=== PATIENT | male | born 1965 | race American Indian/Alaskan Native ===

== ENCOUNTER 2021-11-13 00:51 | Emergency (ER) | payer MEDICAID ==
[2021-11-13 00:57] VITALS: BP 147/89
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
== END 2021-11-13 01:39 | disposition home or self-care (01) ==
LOC: ED 00:51
DX: S49.92XA Unspecified injury of left shoulder and upper arm, initial encounter (principal); I10 Essential (primary) hypertension; E11.9 Type 2 diabetes mellitus without complications; F20.9 Schizophrenia, unspecified; Y08.89XA Assault by other specified means, initial encounter; Y93.89 Activity, other specified; Y92.89 Other specified places as the place of occurrence of the external cause; Y99.8 Other external cause status
CPT/HCPCS: 99283

== ENCOUNTER 2022-02-13 20:03 | Inpatient (IN) | payer MEDICAID ==
--- NOTE | 2022-02-13 20:37 | Consultation ---
Medications and Allergies Allergies Allergy/AdvReac Type Severity Reaction Status Date / Time No Known Allergies Allergy Unverified 11/13/21 00:57 Home Medications Medication Instructions Recorded Confirmed Last Taken Type Naproxen [Naprosyn] 500 mg PO BID #14 tablet 11/13/21 Unknown Rx Assessment and Plan [facility] Consult Note # Demographics Consult Type: Acute Stroke Level 1 (0-4.5 hrs) Patient Location: Emergency Room First Name: Randy Last Name: Jewel Date of : 1965 Age: 56 Gender: Male Time of Initial Page ([facility]): 02/14/2022, 00:16 Time of Return Call ([facility]): 02/14/2022, 00:16 # HPI History: 56M reports that he had strokes 10 months ago. Same symptoms today he says. Not able to walk or speak well. left side weak also. Last well time was about 19:30. Patient feels he started having trouble Friday, but family noticed worsening today. # Scores Time of exam and NIHSS ([facility]): 02/14/2022, 00:33 Level of Consciousness 1a: [0] = Alert; keenly responsive LOC Questions 1b: [0] = Answers both questions correctly LOC Commands 1c: [0] = Performs both tasks correctly Best Gaze 2: [1] = Partial gaze palsy Visual 3: [0] = No visual loss Facial Palsy 4: [1] = Minor paralysis Motor Arm Left 5a: [1] = Drift Motor Arm Right 5b: [0] = No drift Motor Leg Left 6a: [1] = Drift Motor Leg Right 6b: [0] = No drift Limb Ataxia 7: [0] = Absent Sensory 8: [1] = [id number] sensory loss Best Language 9: [0] = No aphasia Dysarthria 10: [2] = Severe dysarthria Extinction and Inattention 11: [0] = No abnormality NIHSS Total: 7 # Data Time Head CT personally read by me ([facility]): 02/14/2022, 00:[address]: no bleed preliminarily reviewed by me, please refer to radiology read for official reading prior cererbellar strokes. # Assessment Impression: Ischemic Stroke (Acute) # Plan Thrombolytic/Intervention: NOT IV Thrombolysis or IA Intervention candidate Thrombolytic Exclusion (< 3 hour window): time of onset unclear Thrombolytic Exclusion: > 4.5 hours Intraarterial Exclusion: other pending CTA head/neck. Target Blood Pressure: SBP < 220 Imaging: (urgency: STAT): CT Angiogram Head and CT Angiogram Neck Imaging: (urgency: routine): MRI Brain without contrast Diagnostic Test: echo with bubble study Medication: aspirin 81 mg daily start statin with goal of LDL < 70 Other: LDL < 70 telemetry monitoring I have discussed my recommendations with the referring provider Additional Recommendations: consider change to plavix from asa. Disposition: admit # Logistics Telemedicine: Interactive 2 way audio and visual telecommunication technology was utilized during this visit
--- NOTE | 2022-02-13 20:40 | Emergency Department Report ---
HPI - General Time Seen by Provider: 02/13/22 20:37 - HPI HPI: Room 6 The patient is a 56-year-old male present with a chief complaint of left-sided weakness. The patient states 5 days ago he noticed he kept falling. Patient states he developed weakness of his left upper extremity and was dragging his left leg. The patient states he has a history of left-sided weakness from previous CVAs but this weakness is much worse than his baseline. Patient states the following day he noticed he had slurred speech and difficulty swallowing. 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) Hx Diabetes: Yes Hx Psychiatric Treatment: Yes (schizophrenia) Additional medical history: high cholesterol - Surgical History Past Surgical History?: No - Family History Family history: no significant - Social History Smoking Status: Never Smoker Substance Use Type: Marijuana - Medications Home Medications: Home Medications Medication Instructions Recorded Confirmed Last Taken Type Naproxen [Naprosyn] 500 mg PO BID #14 tablet 11/13/21 Unknown Rx ED Review of Systems ROS: Stated complaint: AMS Other details as noted in HPI Constitutional: no symptoms reported Eyes: denies: eye pain ENT: denies: throat pain Respiratory: no symptoms reported Cardiovascular: denies: chest pain Endocrine: no symptoms reported Gastrointestinal: denies: abdominal pain Genitourinary: denies: dysuria Musculoskeletal: denies: back pain Neurological: weakness, paresthesias, abnormal gait Physical Exam - Physical Exam Physical Exam: GENERAL: The patient is well-developed well-nourished male lying on stretcher not appearing to be in acute distress. [] HEENT: Normocephalic. Atraumatic. Extraocular motions are intact. Patient has moist mucous membranes. NECK: Supple. Trachea midline CHEST/LUNGS: Clear to auscultation. There is no respiratory distress noted. HEART/CARDIOVASCULAR: Regular. There is no tachycardia. There is no gallop rub or murmur. ABDOMEN: Abdomen is soft, nontender. Patient has normal bowel sounds. There is no abdominal distention. SKIN: There is no rash. There is no edema. There is no diaphoresis. NEURO: The patient is awake, alert, and oriented. The patient is cooperative. Cranial nerves II through XII grossly intact with exception of cranial nerve XI on the left. The patient has slightly slurred speech. Patient is able to hold right upper extremity at 45 degree angle for 5-second count without drift. Patient is able to hold left upper extremity at 45 degree angle for 5-second count with some drift but it does not fall to the bed. Patient is able to hold right lower extremity at 30 degree angle for 10-second count without drift. Patient can raise left lower extremity off the bed but not up to a full 30 degrees and there is drift for 5-second count but it does not fall to the bed. N IHSS= 7 MUSCULOSKELETAL: There is no evidence of acute injury. ED Course - Consultations Consultation #1: 02/13/22 20:39 Case discussed with telemetry neurologist Dr. Tena-patient reports he believes the symptoms began 5 days ago for the family noticed it approximately 1 hour ago. Subsequently do not believe the patient is a candidate for tPA unless further information becomes available clarifying the time of onset ED Medical Decision Making - Lab Data Result diagrams: 02/13/22 20:48 02/13/22 20:48 - Radiology Data Radiology results: report reviewed (CT head, CTA brain, CTA neck), image reviewed (CT head, CTA brain, CTA neck) [facility] [address] [place] [address] Cat Scan Report Signed Patient: MICHAEL POWELL MR#: [id number] : 1965 Acct:[id number] Age/Sex: 56 / M ADM Date: 02/13/22 Loc: ED Attending Dr: Ordering Physician: CHARISSE FERMIN MD Date of Service: 02/13/22 Procedure(s): CT angio head Accession Number(s): [id number] cc: CHARISSE FERMIN MD CTA head with intravenous contrast CLINICAL HISTORY: Left-sided weakness TECHNIQUE: 0.625 mm thick contiguous axial scans were obtained from the skull base to the skull vertex during rapid bolus administration of intravenous contrast material. Multiplanar reconstructions were produced in the coronal and sagittal planes. In addition 3 plane MIP instructions were produced and reviewed for this report. The axial source images and reconstructed images were reviewed for this report. CONTRAST DOSE REPORT: Omnipaque 350: 100 ml administered intravenously. All CT scans at this location are performed using CT dose reduction for ALARA by means of automated exposure control. FINDINGS: Internal carotid arteries:Flor, cavernous, opthalmic, clinoid and supraclinoid segments of the ICAs have an unremarkable appearance. Middle cerebral arteries:Normal and symmetrical M1 segments of the middle cerebral arteries are demonstrated. No abnormalities are seen on evaluation of the insular or opercular branches. Anterior cerebral arteries:Bilaterally symmetrical A1 segments are demonstrated. No abnormalities are seen along the course of the A2 segments or their visualized pericallosal branches. The small anterior communicating artery is identified. Vertebral arteries:Bilaterally symmetrical vertebral arteries are demonstrated. Both vertebral arteries contribute to the basilar artery origin. Basilar artery:Basilar artery has an unremarkable appearance. Posterior cerebral arteries:Bilaterally symmetrical posterior cerebral arteries are identified. Bilateral posterior communicating arteries are observed. [place]: Intact.. see above. Dural sinuses: Dural venous sinuses are well demonstrated on this exam. There is no evidence of dural sinus thrombosis. IMPRESSION: 1. No indication of intercranial stenosis, large vessel occlusion or aneurysm. Signer Name: Santosh Austin MD Signed: 02/13/2022 10:38 PM Workstation Name: [id number] Transcribed By: Dictated By: Santosh Austin MD Electronically Authenticated By: Santosh Austin MD Signed Date/Time: 02/13/222237 DD/ 32 TD/TT: Cat Scan Report Signed Patient: MICHAEL POWELL MR#: [id number] : 1965 Acct:[id number] Age/Sex: 56 / M ADM Date: 02/13/22 Loc: ED Attendi stephane Dr: Ordering Physician: CHARISSE FERMIN MD Date of Service: 02/13/22 Procedure(s): CT angio neck Accession Number(s): [id number] cc: CHARISSE FERMIN MD CTA neck without and with intravenous contrast material CLINICAL HISTORY: Left- sided weakness TECHNIQUE: Following acquisition of a timing bolus 0.625 mm thick contiguous axial scans were obtained from aortic arch to the skull base during rapid bolus intravenous contrast infusion. In addition to evaluation of axial source images multiplanar reconstructions were produced and reviewed for this report. 3 plane MIP reconstructions were produced and reviewed. Contrast dose report: Omnipaque 350: 100 ml, administered intravenously All CT examinations performed at this facility utilize modulated dose reduction, iterative reconstruction or weight-based dosing, as appropriate, to obtain a radiation dose which is as low as can reasonably be achieved. FINDINGS: Thoracic aorta:No abnormalities are identified along the course of the thoracic aorta..The origins of the great vessels have an unremarkable appearance. Brachiocephalic artery, left common carotid artery origin and left subclavian artery all have an unremarkable appearance. Right carotid artery:No abnormalities are seen along the course of the RCCA, at the right carotid bifurcation or along the cervical portions of the RENATO. Left carotid artery: Soft plaque is seen along the course of the left common carotid artery. There is no associated stenosis. Evaluation of the left carotid bulb is remarkable for a large amount of soft plaque which extends up into the proximal LICA. This results in an 0.7 cm length stenosis at the origin of the LICA. The degree of stenosis is about 70-75% Posterior circulation: Right vertebral artery is hypoplastic. Vertebral artery on the right is only intermittent visualized. This may be secondary to retrograde flow of blood and contrast. The origin of the RVA is poorly demonstrated. The degree of stenosis, if any, is determined utilizing NASCET like criteria. In this case there is no a 70-75% stenosis at the origin of the LICA. Evaluation of the nonv ascular soft tissue structures reveal no abnormality. There is no indication of cervical lymphadenopathy. No abnormalities are seen along the course of the airway. Visualized portions of the parotid glands and the submandibular salivary glands have a normal appearance. Thyroid gland has a normal appearance. Evaluation of the lung apices reveals no evidence of lung nodule or infiltrate. Evaluation of the cervical spine revealed no significant abnormalities. IMPRESSION: 1. Soft plaque at the left carotid bulb is associated with a 70-75% stenosis at the origin of the LICA Signer Name: Santosh Austin MD Signed: 02/13/2022 10:45 PM Workstation Name: [id number] Transcribed By: Dictated By: Santosh Austin MD Electronically Authenticated By: Santosh Austin MD Signed Date/Time: 02/13/222244 DD/ 37 TD/TT: [facility] [address] [place] [address] Cat Scan Report Signed Patient: MICHAEL POWELL MR#: [id number] : 1965 Acct:[id number] Age/Sex: 56 / M ADM Date: 02/13/22 Loc: ED Attending Dr: Jorge abad Physician: CHARISSE FERMIN MD Date of Service: 02/13/22 Procedure(s): CT head/brain wo con Accession Number(s): [id number] cc: CHARISSE FERMIN MD CT HEAD WITHOUT CONTRAST INDICATION / CLINICAL INFORMATION: possible stroke. TECHNIQUE: All CT scans at this location are performed using CT dose reduction for ALARA by means of automated exposure control. COMPARISON: None available. FINDINGS: HEMORRHAGE: No evidence of intracranial hemorrhage or extra-axial fluid collection. EXTRA-AXIAL SPACES: Cortical sulci, sylvian fissures and basilar cisterns have an unremarkable appearance. VENTRICULAR SYSTEM: Ex vacuo dilatation of the frontal horn and anterior body of the right lateral ventricle is noted secondary to remote deep infarction in the adjacent right gangliocapsular region. No additional supratentorial infarctions are identified. CEREBRAL PARENCHYMA: Low-attenuation region in the right gangliocapsular region looks the presence of a remote small deep infarction in this location. Mild microvascular ischemic changes are present in the white matter both cerebral hemispheres. MIDLINE SHIFT OR HERNIATION: There is no mass effect. CEREBELLUM / BRAINSTEM: Brainstem has an unremarkable appearance. There is evidence of remote bilateral cerebellar infarctions in a PICA distribution. MIDLINE STRUCTURES:No abnormalities of the pituitary gland or pineal region are identified. INTRACRANIAL VESSELS: Calcified atherosclerotic plaque is present along the course the cavernous segments of both internal carotid arteries. This extends up through the clinoid segments bilaterally. ORBITS: visualized portions of the orbits have an unremarkable appearance. SOFT TISSUES of HEAD: No significant abnormality. CALVARIUM: Evaluation of bone windows reveals no abnormalities. PARANASAL SINUSES / MASTOID AIR CELLS: Visualized portions of the paranasal sinuses are free from inflammatory mucosal disease. Mastoid air cells are normally pneumatized. IMPRESSION: 1. 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 2. Bilateral cerebellar infarctions which appear to be in the PICA distribution. 3. No acute intracranial abnormality. CODE STROKE: Time of Communication (CULL GRADER/CDT): 2001 hours Central standard time Licensed Practitioner Receiving Report: Dr. Fermin Signer Name: Santosh Austin MD Signed: 02/13/2022 9:07 PM Workstation Name: [id number] Transcribed By: Dictated By: Santosh Austin MD Electronically Authenticated By: Santosh Austin MD Signed Date/Time: 02/13/222106 DD/ 58 TD/TT: - Differential Diagnosis CVA Critical care attestation.: If time is entered above; I have spent that time in minutes in the direct care of this critically ill patient, excluding procedure time. ED Disposition Clinical Impression: CVA (cerebral vascular accident) Disposition: ADMITTED INPATIENT Is pt being admited?: Yes Does the pt Need Aspirin: Yes Condition: Fair Time of Disposition: 22:54 (Care transferred to hospitalist (Dr. Torres))
[2022-02-13] MEDS ORDERED: ASPIRIN 325 MG TAB PO ONE (21:00)
[2022-02-13 21:08] LABS: Basophils % (Auto) 0.5 % (0.0-1.8); Eosinophils # (Auto) 0.1 K/mm3 (0.0-0.4); Eosinophils % (Auto) 1.6 % (0.0-4.3); Hematocrit 41.5 % (35.5-45.6); INR 0.84 (0.87-1.13); Lymphocytes # (Auto) 1.7 K/mm3 (1.2-5.4); Lymphocytes % (Auto) 20.3 % (13.4-35.0); Mean Corpuscular HGB Conc 34 % (32-34); Mean Corpuscular Volume 92 fl (84-94); Monocytes # (Auto) 0.9 K/mm3 (0.0-0.8); Monocytes % (Auto) 10.1 % (0.0-7.3); Platelet Count 304 K/mm3 (140-440); Red Blood Count 4.52 M/mm3 (3.65-5.03); Red Cell Distribution Width 13.7 % (13.2-15.2)
[2022-02-13 21:09] LABS: BUN/Creatinine Ratio 23; Blood Urea Nitrogen 23 mg/dL (9-20); Calcium 9.5 mg/dL (8.4-10.2); Hemolysis Index 5
--- NOTE | 2022-02-13 21:12 | Cat Scan Report ---
CT HEAD WITHOUT CONTRAST INDICATION / CLINICAL INFORMATION: possible stroke. TECHNIQUE: All CT scans at this location are performed using CT dose reduction for ALARA by means of automated e xposure control. COMPARISON: None available. FINDINGS: HEMORRHAGE: No evidence of intracranial hemorrhage or extra-axial fluid collection. EXTRA-AXIAL SPACES: Cortical sulci, sylvian fissures and basilar cisterns have an unremarkable appear ance. VENTRICULAR SYSTEM: Ex vacuo dilatation of the frontal horn and anterior body of the right lateral ve ntricle is noted secondary to remote deep infarction in the adjacent right gangliocapsular region. No additional supratentorial infarctions are identified. CEREBRAL PARENCHYMA: Low-attenuation region in the right gangliocapsular region looks the presence of a remote small deep infarction in this location. Mild microvascular ischemic changes are present in the white matter both cerebral hemispheres. MIDLINE SHIFT OR HERNIATION: There is no mass effect. CEREBELLUM / BRAINSTEM: Brainstem has an unremarkable appearance. There is evidence of remote bilater al cerebellar infarctions in a PICA distribution. MIDLINE STRUCTURES:No abnormalities of the pituitary gland or pineal region are identified. INTRACRANIAL VESSELS: Calcified atherosclerotic plaque is present along the course the cavernous segm ents of both internal carotid arteries. This extends up through the clinoid segments bilaterally. ORBITS: visualized portions of the orbits have an unremarkable appearance. SOFT TISSUES of HEAD: No significant abnormality. CALVARIUM: Evaluation of bone windows reveals no abnormalities. PARANASAL SINUSES / MASTOID AIR CELLS: Visualized portions of the paranasal sinuses are free from inf lammatory mucosal disease. Mastoid air cells are normally pneumatized. IMPRESSION: 1. 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 2. Bilateral cerebellar infarctions which appear to be in the PICA distribution. 3. No acute intracranial abnormality. CODE STROKE: Time of Communication (WASTE MACHINE OFFBEARER/CDT): 2001 hours Central standard time Licensed Practitioner Receiving Report: Dr. Lindquist Signer Name: Santosh Austin MD Signed: 02/13/2022 9:07 PM Workstation Name: [id number]
[2022-02-13 21:14] LABS: Thrombin Time 17.7 Sec. (15.1-19.6)
--- NOTE | 2022-02-13 22:42 | Cat Scan Report ---
CTA head with intravenous contrast CLINICAL HISTORY: Left-sided weakness TECHNIQUE: 0.625 mm thick contiguous axial scans were obtained from the skull base to the skull vertex during r apid bolus administration of intravenous contrast material. Multiplanar reconstructions were produced in the coronal and sagittal planes. In addition 3 plane MIP instructions were produced and reviewed for this report. The axial source images and reconstructed images were reviewed for this report. CONTRAST DOSE REPORT: Omnipaque 350: 100 ml administered intravenously. All CT scans at this location are performed using CT dose reduction for ALARA by means of automated e xposure control. FINDINGS: Internal carotid arteries:Flor, cavernous, opthalmic, clinoid and supraclinoid segments of the ICAs have an unremarkable appearance. Middle cerebral arteries:Normal and symmetrical M1 segments of the middle cerebral arteries are demon strated. No abnormalities are seen on evaluation of the insular or opercular branches. Anterior cerebral arteries:Bilaterally symmetrical A1 segments are demonstrated. No abnormalities are seen along the course of the A2 segments or their visualized pericallosal branches. The small anteri or communicating artery is identified. Vertebral arteries:Bilaterally symmetrical vertebral arteries are demonstrated. Both vertebral arteri es contribute to the basilar artery origin. Basilar artery:Basilar artery has an unremarkable appearance. Posterior cerebral arteries:Bilaterally symmetrical posterior cerebral arteries are identified. Bila teral posterior communicating arteries are observed. [place]: Intact.. see above. Dural sinuses: Dural venous sinuses are well demonstrated on this exam. There is no evidence of dural sinus thrombosis. IMPRESSION: 1. No indication of intercranial stenosis, large vessel occlusion or aneurysm. Signer Name: Santosh Austin MD Signed: 02/13/2022 10:38 PM Workstation Name: [id number]
--- NOTE | 2022-02-13 22:49 | Cat Scan Report ---
CTA neck without and with intravenous contrast material CLINICAL HISTORY: Left-sided weakness TECHNIQUE: Following acquisition of a timing bolus 0.625 mm thick contiguous axial scans were obtained from aort ic arch to the skull base during rapid bolus intravenous contrast infusion. In addition to evaluation of axial source images multiplanar reconstructions were produced and reviewed for this report. 3 jorge ne MIP reconstructions were produced and reviewed. Contrast dose report: Omnipaque 350: 100 ml, administered intravenously All CT examinations performed at this facility utilize modulated dose reduction, iterative reconstruc tion or weight-based dosing, as appropriate, to obtain a radiation dose which is as low as can reason ably be achieved. FINDINGS: Thoracic aorta:No abnormalities are identified along the course of the thoracic aorta..The origins of the great vessels have an unremarkable appearance. Brachiocephalic artery, left common carotid arter y origin and left subclavian artery all have an unremarkable appearance. Right carotid artery:No abnormalities are seen along the course of the RCCA, at the right carotid bif urcation or along the cervical portions of the RENATO. Left carotid artery: Soft plaque is seen along the course of the left common carotid artery. There is no associated stenosis. Evaluation of the left carotid bulb is remarkable for a large amount of soft plaque which extends up into the proximal LICA. This results in an 0.7 cm length stenosis at the siobhan gin of the LICA. The degree of stenosis is about 70-75% Posterior circulation: Right vertebral artery is hypoplastic. Vertebral artery on the right is only i ntermittent visualized. This may be secondary to retrograde flow of blood and contrast. The origin of the RVA is poorly demonstrated. The degree of stenosis, if any, is determined utilizing NASCET like criteria. In this case there is no a 70-75% stenosis at the origin of the LICA. Evaluation of the nonvascular soft tissue structures reveal no abnormality. There is no indication of cervical lymphadenopathy. No abnormalities are seen along the course of the airway. Visualized porti ons of the parotid glands and the submandibular salivary glands have a normal appearance. Thyroid gla nd has a normal appearance. Evaluation of the lung apices reveals no evidence of lung nodule or infil trate. Evaluation of the cervical spine revealed no significant abnormalities. IMPRESSION: 1. Soft plaque at the left carotid bulb is associated with a 70-75% stenosis at the origin of the LIC A Signer Name: Santosh Austin MD Signed: 02/13/2022 10:45 PM Workstation Name: [id number]
[2022-02-13] MEDS ORDERED: MORPHINE 4 MG/1 ML INJ IV PRN (23:10)
[2022-02-13] MEDS ORDERED: MORPHINE 2 MG/1 ML INJ IV PRN (23:10)
[2022-02-13] MEDS ORDERED: ONDANSETRON 4 MG/2 ML INJ IV PRN (23:10)
--- NOTE | 2022-02-13 23:22 | History and Physical Report ---
History of Present Illness Date of examination: 02/13/22 Date of admission: 02/13/22 Chief complaint: Left-sided weakness History of present illness: 56-year-old male with history of CVA, hypertension, diabetes was brought to the emergency room because of left-sided weakness since Friday. The patient states 5 days ago he noticed he kept falling. Patient states he developed weakness of his left upper extremity and was dragging his left leg. The patient states he has a history of left-sided weakness from previous CVAs but this weakness is much worse than his baseline. Patient states the following day he noticed he had slurred speech and difficulty swallowing. Today family saw the patient and had him brought to the emergency department Initial CT scan of the head shows remote deep gangliocapsular infarction on the right with exvacuodilatation of the adjacent right lateral ventricle. Bilateral cerebral infarction which appeared to be in the PICA distribution. No acute intracranial abnormality . neck CTA shows soft plaque at the left carotid bulb i s associated with a 70 to 75% stenosis at the origin of LICA . case discussed with telemetry neurologist Dr. Tena-patient reports he believes the symptoms began 5 days ago for the family noticed it approximately 1 hour ago. Subsequently do not believe the patient is a candidate for tPA unless fu rther information becomes available clarifying the time of onset Past History Past Medical History: diabetes, hypertension, hyperlipidemia (Schizophrenia), stroke, other Past Surgical History: No surgical history Social history: other (Marijuana abuse) Family history: hypertension Medications and Allergies Allergies Allergy/AdvReac Type Severity Reaction Status Date / Time No Known Allergies Allergy Unverified 11/13/21 00:57 Home Medications Medication Instructions Recorded Confirmed Last Taken Type Naproxen [Naprosyn] 500 mg PO BID #14 tablet 11/13/21 Unknown Rx Active Meds: Active Medications Acetaminophen (Acetaminophen 325 Mg Tab) 650 mg PO Q4H PRN PRN Reason: Pain MILD(1-3)/Fever >100.5/BECERRA Aspirin (Aspirin 325 Mg Tab) 325 mg PO QDAY [facility] Atorvastatin Calcium (Atorvastatin 40 Mg Tab) 40 mg PO QHS [facility] Famotidine (Famotidine 20 Mg/2 Ml Inj) 20 mg IV BID [facility] Sodium Chloride (Nacl 0.9% 1000 Ml) 1,000 mls @ 100 mls/hr IV DIRECT [facility] Morphine Sulfate (Morphine 2 Mg/1 Ml Inj) 2 mg IV Q4H PRN PRN Reason: Pain, Moderate (4-6) Morphine Sulfate (Morphine 4 Mg/1 Ml Inj) 4 mg IV Q4H PRN PRN Reason: Pain , Severe (7-10) Ondansetron HCl (Ondansetron 4 Mg/2 Ml Inj) 4 mg IV Q8H PRN PRN Reason: Nausea And Vomiting Sodium Chloride (Sodium Chloride 0.9% 10 Ml Flush Syringe) 10 ml IV BID [facility] Sodium Chloride (Sodium Chloride 0.9% 10 Ml Flush Syringe) 10 ml IV PRN PRN PRN Reason: LINE FLUSH Sodium Chloride (Sodium Chloride 0.9% 10 Ml Flush Syringe) 10 ml INJ PRN PRN PRN Reason: LINE FLUSH Review of Systems All systems: negative Constitutional: weakness Neurological: weakness, numbness, change in speech, other (Difficulty in swallow) Exam - Constitutional General appearance: Present: no acute distress, well-nourished - EENT Eyes: Present: PERRL ENT: hearing intact, clear oral mucosa - Neck Neck: Present: supple, normal ROM - Respiratory Respiratory effort: normal Respiratory: bilateral: CTA - Cardiovascular Heart Sounds: Present: S1 & S2. Absent: rub, click - Extremities Extremities: pulses symmetrical, No edema Peripheral Pulses: within normal limits - Abdominal General gastrointestinal: Present: soft, non-tender, non-distended, normal bowel sounds Male genitourinary: Present: normal - Integumentary Integumentary: Present: clear, warm, dry - Musculoskeletal Musculoskeletal: gait normal, strength equal bilaterally - Psychiatric Psychiatric: appropriate mood/affect, intact judgment & insight - Neurologic Neurologic: CNII-XII intact, moves all extremities, other (Left-sided weakness) Results - Labs CBC & Chem 7: 02/13/22 20:48 02/13/22 20:48 Labs: Laboratory Last Values WBC 8.6 K/mm3 (4.5-11.0) 02/13/22 20:48 RBC 4.52 M/mm3 (3.65-5.03) 02/13/22 20:48 Hgb 14.0 gm/dl (11.8-15.2) 02/13/22 20:48 Hct 41.5 % (35.5-45.6) 02/13/22 20:48 MCV 92 fl (84-94) 02/13/22 20:48 MCH 31 pg (28-32) 02/13/22 20:48 MCHC 34 % (32-34) 02/13/22 20:48 RDW 13.7 % (13.2-15.2) 02/13/22 20:48 Plt Count 304 K/mm3 (140-440) 02/13/22 20:48 Lymph % (Auto) 20.3 % (13.4-35.0) 02/13/22 20:48 [place] % (Auto) 10.1 % (0.0-7.3) H 02/13/22 20:48 Eos % (Auto) 1.6 % (0.0-4.3) 02/13/22 20:48 Baso % (Auto) 0.5 % (0.0-1.8) 02/13/22 20:48 Lymph # (Auto) 1.7 K/mm3 (1.2-5.4) 02/13/22 20:48 [place] # (Auto) 0.9 K/mm3 (0.0-0.8) H 02/13/22 20:48 Eos # (Auto) 0.1 K/mm3 (0.0-0.4) 02/13/22 20:48 Baso # (Auto) 0.0 K/mm3 (0.0-0.1) 02/13/22 20:48 Seg Neutrophils % 67.5 % (40.0-70.0) 02/13/22 20:48 Seg Neutrophils # 5.8 K/mm3 (1.8-7.7) 02/13/22 20:48 PT 12.4 Sec. (12.2-14.9) 02/13/22 20:48 INR 0.84 (0.87-1.13) L 02/13/22 20:48 APTT 25.0 Sec. (24.2-36.6) 02/13/22 20:48 Thrombin Time 17.7 Sec. (15.1-19.6) 02/13/22 20:48 Sodium 136 mmol/L (137-145) L 02/13/22 20:48 Potassium 4.2 mmol/L (3.6-5.0) 02/13/22 20:48 Chloride 101.2 mmol/L (98-107) 02/13/22 20:48 Carbon Dioxide 24 mmol/L (22-30) 02/13/22 20:48 Anion Gap 15 mmol/L 02/13/22 20:48 BUN 23 mg/dL (9-20) H 02/13/22 20:48 Creatinine 1.0 mg/dL (0.8-1.3) 02/13/22 20:48 Estimated GFR > 60 ml/min 02/13/22 20:48 BUN/Creatinine Ratio 23 % 02/13/22 20:48 Glucose 114 mg/dL (75-100) H 02/13/22 20:48 Calcium 9.5 mg/dL (8.4-10.2) 02/13/22 20:48 - Imaging and Cardiology CT Scan - head: report reviewed Assessment and Plan VTE prophylaxis?: Chemical Plan of care discussed with patient/family: Yes - Patient Problems (1) CVA (cerebral vascular accident) Current Visit: Yes Status: Acute Plan to address problem: Admit the patient to the medical telemetry. NPO. Normal saline at the rate of 100 cc/h. Aspirin 325 mg p.o. daily. Lipitor 40 mg p.o. daily. We do the MRI of the brain MRI of the brain and neck with and without contrast. PT OT speech evaluation neurology consult and vascular surgery consult (2) Diabetes Current Visit: Yes Status: Acute Plan to address problem: Accu-Chek every 6 hours with Humalog moderate dose coverage as. Diabetic education (3) High cholesterol Current Visit: Yes Status: Acute Plan to address problem: Lipitor 40 mg p.o. daily. We will recheck the lipid panel (4) Schizophrenia Current Visit: Yes Status: Acute Plan to address problem: Stable. We will continue the home medication (5) DVT prophylaxis Current Visit: Yes Status: Acute Plan to address problem: Heparin 5000 units subcu every 12 hours for DVT prophylaxis. Pepcid 20 mg IV every 12 hours for GI prophylaxis. Patient is a full code
[2022-02-13] MEDS ORDERED: DEXTROSE 50% IN WATER (25GM) 50 ML SYRINGE IV PRN (23:24)
[2022-02-14] MEDS: SODIUM CHLORIDE 0.9% 1000 ML 1,000 ML IV SCH ×2 (03:32→14:59)
[2022-02-14] MEDS: INSULIN LISPRO 100 UNIT/ML SUB-Q SCH ×4 (03:46→21:30)
[2022-02-14 04:27] LABS: Basophils % (Auto) 0.5 % (0.0-1.8); Eosinophils # (Auto) 0.2 K/mm3 (0.0-0.4); Eosinophils % (Auto) 2.3 % (0.0-4.3); Hematocrit 40.4 % (35.5-45.6); Hemoglobin 13.7 gm/dl (11.8-15.2); Lymphocytes # (Auto) 2.1 K/mm3 (1.2-5.4); Lymphocytes % (Auto) 26.2 % (13.4-35.0); Mean Corpuscular HGB Conc 34 % (32-34); Mean Corpuscular Volume 92 fl (84-94); Monocytes # (Auto) 0.9 K/mm3 (0.0-0.8); Monocytes % (Auto) 11.3 % (0.0-7.3); Platelet Count 281 K/mm3 (140-440); Red Blood Count 4.39 M/mm3 (3.65-5.03); Red Cell Distribution Width 13.5 % (13.2-15.2)
[2022-02-14 04:52] LABS: BUN/Creatinine Ratio 21; Blood Urea Nitrogen 19 mg/dL (9-20); Calcium 9.5 mg/dL (8.4-10.2); Chol/HDL Ratio 3.75 %; HDL Cholesterol 48 mg/dL (40-59); Hemolysis Index 2; LDL Cholesterol,Direct 120 mg/dL (50-130)
--- NOTE | 2022-02-14 09:57 | Progress Note ---
Assessment and Plan Assessment and plan: VTE prophylaxis?: Chemical Plan of care discussed with patient/family: Yes - Patient Problems --CVA (cerebral vascular accident) Admit the patient to the medical telemetry. NPO. Normal saline at the rate of 100 cc/h. Aspirin 325 mg p.o. daily. Lipitor 40 mg p.o. daily. We do the MRI of the brain MRI of the brain and neck with and without contrast. PT OT speech evaluation neurology consult and vascular surgery consult PT OT evaluation, rehabilitation, discharge planning --Carotid artery stenosis; Vascular consulted Follow evaluation and recommendations Antiplatelets and statins --Type II diabetes Accu-Chek every 6 hours with Humalog moderate dose coverage as. Diabetic educat ion --Dyslipidemia Lipitor 40 mg p.o. daily. We will recheck the lipid panel --History of schizophrenia Stable. We will continue the home medication -- DVT prophylaxis Heparin 5000 units subcu every 12 hours for DVT prophylaxis. Pepcid 20 mg IV every 12 hours for GI prophylaxis. Patient is a full code Follow extensive neuro work-up Follow neurology and vascular evaluation recommendations Closely monitor the patient and adjust the management as needed Plan of care reviewed with the patient and her nurse History Interval history: I have seen and examined the patient at the bedside Patient's chart and medications reviewed Patient was admitted with altered level of consciousness and strokelike symptoms CVA work-up is in progress Vital signs reviewed Hospitalist Physical - Constitutional Vitals: Temp Pulse Resp BP Pulse Ox 97.6 F 76 16 133/78 96 02/14/22 08:25 02/14/22 08:25 02/14/22 03:26 02/14/22 08:25 02/14/22 08:59 General appearance: Present: no acute distress, well-nourished - EENT Eyes: Present: PERRL, EOM intact - Neck Neck: Present: supple, normal ROM - Respiratory Respiratory effort: normal Respiratory: bilateral: diminished, negative: rales, rhonchi, wheezing - Cardiovascular Rhythm: regular Heart Sounds: Present: S1 & S2 - Extremities Extremities: no ischemia, No edema - Abdominal General gastrointestinal: soft, non-tender, non-distended, normal bowel sounds - Integumentary Integumentary: Present: clear, warm - Psychiatric Psychiatric: appropriate mood/affect, cooperative - Neurologic Neurologic: moves all extremities (Residual weakness) Results - Labs CBC & Chem 7: 02/14/22 04:07 02/14/22 04:07 Labs: Laboratory Last Values WBC 8.0 K/mm3 (4.5-11.0) 02/14/22 04:07 RBC 4.39 M/mm3 (3.65-5.03) 02/14/22 04:07 Hgb 13.7 gm/dl (11.8-15.2) 02/14/22 04:07 Hct 40.4 % (35.5-45.6) 02/14/22 04:07 MCV 92 fl (84-94) 02/14/22 04:07 MCH 31 pg (28-32) 02/14/22 04:07 MCHC 34 % (32-34) 02/14/22 04:07 RDW 13.5 % (13.2-15.2) 02/14/22 04:07 Plt Count 281 K/mm3 (140-440) 02/14/22 04:07 Lymph % (Auto) 26.2 % (13.4-35.0) 02/14/22 04:07 [place] % (Auto) 11.3 % (0.0-7.3) H 02/14/22 04:07 Eos % (Auto) 2.3 % (0.0-4.3) 02/14/22 04:07 Baso % (Auto) 0.5 % (0.0-1.8) 02/14/22 04:07 Lymph # (Auto) 2.1 K/mm3 (1.2-5.4) 02/14/22 04:07 [place] # (Auto) 0.9 K/mm3 (0.0-0.8) H 02/14/22 04:07 Eos # (Auto) 0.2 K/mm3 (0.0-0.4) 02/14/22 04:07 Baso # (Auto) 0.0 K/mm3 (0.0-0.1) 02/14/22 04:07 Seg Neutrophils % 59.7 % (40.0-70.0) 02/14/22 04:07 Seg Neutrophils # 4.8 K/mm3 (1.8-7.7) 02/14/22 04:07 PT 12.4 Sec. (12.2-14.9) 02/13/22 20:48 INR 0.84 (0.87-1.13) L 02/13/22 20:48 APTT 25.0 Sec. (24.2-36.6) 02/13/22 20:48 Thrombin Time 17.7 Sec. (15.1-19.6) 02/13/22 20:48 Sodium 138 mmol/L (137-145) 02/14/22 04:07 Potassium 3.8 mmol/L (3.6-5.0) 02/14/22 04:07 Chloride 102.9 mmol/L (98-107) 02/14/22 04:07 Carbon Dioxide 22 mmol/L (22-30) 02/14/22 04:07 Anion Gap 17 mmol/L 02/14/22 04:07 BUN 19 mg/dL (9-20) 02/14/22 04:07 Creatinine 0.9 mg/dL (0.8-1.3) 02/14/22 04:07 Estimated GFR > 60 ml/min 02/14/22 04:07 BUN/Creatinine Ratio 21 % 02/14/22 04:07 Glucose 87 mg/dL (75-100) 02/14/22 04:07 Calcium 9.5 mg/dL (8.4-10.2) 02/14/22 04:07 Triglycerides 81 mg/dL (2-149) 02/14/22 04:07 Cholesterol 180 mg/dL (50-199) 02/14/22 04:07 LDL Cholesterol Direct 120 mg/dL (50-130) 02/14/22 04:07 HDL Cholesterol 48 mg/dL (40-59) 02/14/22 04:07 Cholesterol/HDL Ratio 3.75 % 02/14/22 04:07 Fraser/IV: Voiding Method Urinal Active Medications - Current Medications Current Medications: Generic Name Dose Route Start Last Admin Trade Name Freq PRN Reason Stop Dose Admin Acetaminophen 650 mg 02/13/22 23:10 Acetaminophen 325 Mg Tab PO Q4H PRN Pain MILD(1-3)/Fever >100.5/[facility]ERRA Aspirin 325 mg 02/14/22 10:00 Aspirin 325 Mg Tab PO QDAY [facility] Atorvastatin Calcium 40 mg 02/14/22 22:00 Atorvastatin 40 Mg Tab PO QHS [facility] Dextrose 0 ml 02/13/22 23:24 Dextrose 50% In Water (25gm) 50 Ml Syringe IV Q30MIN PRN Hypoglycemia Protocol Famotidine 20 mg 02/14/22 10:00 Famotidine 20 Mg/2 Ml Inj IV BID [facility] Sodium Chloride 1,000 mls @ 100 mls/hr 02/13/22 23:15 02/14/22 03:32 Nacl 0.9% 1000 Ml IV 100 mls/hr DIRECT [facility] Administration Insulin Human Lispro 0 unit 02/14/22 00:00 02/14/22 06:38 Insulin Lispro 100 Unit/Ml SUB-Q Not Given Q6HR [facility] Protocol Morphine Sulfate 2 mg 02/13/22 23:10 Morphine 2 Mg/1 Ml Inj IV Q4H PRN Pain, Moderate (4-6) Morphine Sulfate 4 mg 02/13/22 23:10 Morphine 4 Mg/1 Ml Inj IV Q4H PRN Pain , Severe (7-10) Ondansetron HCl 4 mg 02/13/22 23:10 Ondansetron 4 Mg/2 Ml Inj IV Q8H PRN Nausea And Vomiting Sodium Chloride 10 ml 02/14/22 10:00 Sodium Chloride 0.9% 10 Ml Flush Syringe IV BID [facility] Sodium Chloride 10 ml 02/13/22 23:10 Sodium Chloride 0.9% 10 Ml Flush Syringe IV PRN PRN LINE FLUSH
[2022-02-14] MEDS: ASPIRIN 325 MG TAB PO SCH (10:01)
[2022-02-14] MEDS: FAMOTIDINE 20 MG/2 ML INJ IV SCH ×2 (10:01→21:31)
--- NOTE | 2022-02-14 10:22 | Electrocardiograph Report ---
[facility] Test Date: 2022-02-13 Test Time: 21:39:52 Pat Name: MICHAEL POWELL Department: Room: A470 1 Gender: M Cover Marker: REGLA : 1965 Requested By: CHARISSE FERMIN Order Number: [id number] Reading MD: Zac Woodson Measurements Intervals [place] Rate: 74 P: 54 [place]: 184 QRS: -57 QRSD: 87 T: -12 QT: 381 QTc: 423 Interpretive Statements Sinus rhythm Probable left atrial enlargement Left ventricular hypertrophy Inferior infarct, age indeterminate Anterior infarct, old Borderline ST elevation, lateral leads No previous ECG available for comparison Electronically Signed On 02-14-2022 10:22:01 EDT by Zac Woodson
--- NOTE | 2022-02-14 13:29 | Consultation ---
History of Present Illness - Reason for Consult Consult date: 02/14/22 Left-sided weakness - History of Present Illness Patient with a history of prior cerebellar infarcts with prior left-sided weakness which the patient describes as improving which worsened over the last 4 to 5 days ultimately resulting in his presentation to [facility]. 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 Additionally, there is narrowing of the proximal aspect of the left ICA. Past History Past Medical History: diabetes, hypertension, hyperlipidemia (Schizophrenia), stroke, other Past Surgical History: No surgical history Social history: other (Marijuana abuse) Family history: hypertension Medications and Allergies Allergies Allergy/AdvReac Type Severity Reaction Status Date / Time No Known Allergies Allergy Unverified 11/13/21 00:57 Home Medications Medication Instructions Recorded Confirmed Last Taken Type Naproxen [Naprosyn] 500 mg PO BID #14 tablet 11/13/21 Unknown Rx Active Meds: Active Medications Acetaminophen (Acetaminophen 325 Mg Tab) 650 mg PO Q4H PRN PRN Reason: Pain MILD(1-3)/Fever >100.5/[facility]ERRA Aspirin (Aspirin 325 Mg Tab) 325 mg PO QDAY [facility] Last Admin: 02/14/22 10:01 Dose: 325 mg Atorvastatin Calcium (Atorvastatin 40 Mg Tab) 40 mg PO QHS [facility] Dextrose (Dextrose 50% In Water (25gm) 50 Ml Syringe) 0 ml IV Q30MIN PRN; Protocol PRN Reason: Hypoglycemia Famotidine (Famotidine 20 Mg/2 Ml Inj) 20 mg IV BID [facility] Last Admin: 02/14/22 10:01 Dose: 20 mg Sodium Chloride (Nacl 0.9% 1000 Ml) 1,000 mls @ 100 mls/hr IV DIRECT [facility] Last Admin: 02/14/22 03:32 Dose: 100 mls/hr Insulin Human Lispro (Insulin Lispro 100 Unit/Ml) 0 unit SUB-Q Q6HR [facility]; Protocol Last Admin: 02/14/22 06:38 Dose: Not Given Morphine Sulfate (Morphine 2 Mg/1 Ml Inj) 2 mg IV Q4H PRN PRN Reason: Pain, Moderate (4-6) Morphine Sulfate (Morphine 4 Mg/1 Ml Inj) 4 mg IV Q4H PRN PRN Reason: Pain , Severe (7-10) Ondansetron HCl (Ondansetron 4 Mg/2 Ml Inj) 4 mg IV Q8H PRN PRN Reason: Nausea And Vomiting Sodium Chloride (Sodium Chloride 0.9% 10 Ml Flush Syringe) 10 ml IV BID [facility] Last Admin: 02/14/22 10:08 Dose: 10 ml Sodium Chloride (Sodium Chloride 0.9% 10 Ml Flush Syringe) 10 ml IV PRN PRN PRN Reason: LINE FLUSH Review of Systems All systems: negative Exam - Constitutional Vitals: Temp Pulse Resp BP Pulse Ox 97.6 F 76 16 133/78 96 02/14/22 08:25 02/14/22 08:25 02/14/22 03:26 02/14/22 08:25 02/14/22 08:59 General appearance: Present: no acute distress - EENT ENT: hearing intact - Neck Neck: Present: supple, normal ROM - Respiratory Respiratory effort: normal - Abdominal General gastrointestinal: Present: deferred - Psychiatric Psychiatric: cooperative Results - Labs CBC & Chem 7: 02/14/22 04:07 02/14/22 04:07 Labs: Abnormal lab results 02/13/22 02/13/22 02/13/22 Range/Units 20:48 20:48 20:48 [place] % (Auto) 10.1 H (0.0-7.3) % [place] # (Auto) 0.9 H (0.0-0.8) K/mm3 INR 0.84 L (0.87-1.13) Sodium 136 L (137-145) mmol/L BUN 23 H (9-20) mg/dL Glucose 114 H (75-100) mg/dL 02/14/22 Range/Units 04:07 [place] % (Auto) 11.3 H (0.0-7.3) % [place] # (Auto) 0.9 H (0.0-0.8) K/mm3 INR (0.87-1.13) Sodium (137-145) mmol/L BUN (9-20) mg/dL Glucose (75-100) mg/dL - Imaging and Cardiology CT Scan - head: image reviewed Assessment and Plan Patient with a recurrent left-sided weakness. On CTA, the patient is noted to have approximately 70% plus percentage stenosis of the proximal left ICA. Is not contributing to the patient's current clinical condition however would warrant follow-up and potential evaluation in the outpatient setting. 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 Would recommend medical optimization. No vascular interventions planned.
--- NOTE | 2022-02-14 13:43 | Magnetic Resonance Report ---
NONENHANCED MR SCAN OF THE BRAIN: INDICATION / CLINICAL INFORMATION: stroke. TECHNIQUE: Multiplanar, multisequence MR images of the brain obtained. COMPARISON: CT scan of the head from 02/13/2022 FINDINGS: BRAIN / INTRACRANIAL CONTENTS: Acute/subacute ischemia seen in the right mid the last, more than 12 levels old (increased T2) less t rojas 5 days old (low ADC). In addition, focal subacute infarction in the midportion of the medulla. Chronic ischemic changes in the cerebellar hemispheres bilaterally along the PICA territory. Volume l oss is seen in the cerebellar hemispheres. Chronic changes are seen in the right side of shazia from small vessel disease. Midbrain is normal. In the cerebral hemispheres, encephalomalacia is seen in the right corpus striatum with compensatory enlargement of right frontal horn from an old hemorrhagic lesion.. Chronic lacunae are seen in the ri ght basal ganglia. High convexity cortical sulci are normal. CRANIOCERVICAL JUNCTION: No significant abnormality. VASCULAR FLOW-VOIDS: No significant abnormality. ORBITS: No significant abnormality of visualized orbits. SINUSES / MASTOIDS: No significant abnormality of visualized sinuses and mastoid air cells. ADDITIONAL FINDINGS: None. IMPRESSION: Subacute right medial medullary ischemia Chronic ischemic changes in the PICA territories bilaterally, right side of shazia Chronic changes in the right basal ganglia from an old hemorrhagic lesion MRA HEAD WITHOUT CONTRAST COMPARISON: CTA of the head from 02/13/2022 TECHNIQUE: Routine MRA of the head is performed. 3-D/MIP reformats postprocessed. CONTRAST: None. FINDINGS: Intracranial vertebral arteries: Right vertebral artery is occluded; left vertebral artery continues as basilar artery Basilar artery: Significant stenoses (more than 80% in the proximal basilar artery Posterior cerebral arteries: No significant abnormality. Right posterior communicating artery continu es as right posterior cerebral artery; left posterior communicating artery contributes to left circus artist ior cerebral artery Intracranial internal carotid arteries: No significant abnormality. Anterior cerebral arteries: No significant abnormality. Middle cerebral arteries: No significant abnormality. Variants and anomalies:None Additional findings: None. 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
--- NOTE | 2022-02-14 15:04 | Magnetic Resonance Report ---
MR brain wo con INDICATION / CLINICAL INFORMATION: 56 years Male; stroke. TECHNIQUE: Multiplanar, multisequence MR images of the brain were obtained. COMPARISON: CT head - 02/13/2022 FINDINGS: BRAIN / INTRACRANIAL CONTENTS: Small focus of acute/early subacute ischemia seen in the right anterol ateral medulla, which certainly could affect the right cortical spinal tract. Old lacunar infarcts are seen in the right gangliocapsular region, as well as the right thalamus. The re is suggestion of prior hemorrhagic component in an old, anterior corpus striatal infarct on the ri ght. Old, bilateral, prominent branch PICA infarcts are noted-left greater than right. Otherwise, no acute hemorrhage, mass effect, midline shift, hydrocephalus, or acute, large territoria l infarct. No chronic infarct or atrophy. Minimal, nonspecific white matter disease identified. Mild to moderate pontine disease noted. CRANIOCERVICAL JUNCTION: No significant abnormality. VASCULAR FLOW-VOIDS: Hyperintense T2 signal seen in the right vertebral artery, suggesting slow or ab sent flow. ORBITS: No significant abnormality of visualized orbits. SINUSES / MASTOIDS: No significant abnormality in the visualized paranasal sinuses or mastoid air mamie ls. ADDITIONAL FINDINGS: None. IMPRESSION: 1. Small focus of acute/early subacute ischemia seen on the right anterolateral medulla. 2. Otherwise, no focal mass, hemorrhage, hydrocephalus, or acute ischemia. 3. Slow or absent flow suggested in the right vertebral artery. Signer Name: Gerald Carl MD, III Signed: 02/14/2022 2:59 PM Workstation Name: [id number]
--- NOTE | 2022-02-14 16:10 | Consultation ---
History of Present Illness Consult date: 02/14/22 Reason for Consult: CVA History of present illness: 6-year-old male with history of CVA, hypertension, diabetes was brought to the emergency room because of left-sided weakness since Friday. The patient states 5 days ago he noticed he kept falling. Patient states he developed weakness of his left upper extremity and was dragging his left leg. The patient states he has a history of left-sided weakness from previous CVAs but this weakness is much worse than his baseline. Patient states the following day he noticed he had slurred speech and difficulty swallowing. Today family saw the patient and had him brought to the emergency department Initial CT scan of the head shows remote deep gangliocapsular infarction on the right with exvacuodilatation of the adjacent right lateral ventricle. Bilateral cerebral infarction which appeared to be in the PICA distribution. No acute intracranial abnormality . neck CTA shows soft plaque at the left carotid bulb is associated with a 70 to 75% stenosis at the origin of LICA . case discussed with telemetry neurologist Dr. Tena-patient reports he believes the symptoms began 5 days ago for the family noticed it approximately 1 hour ago. Subsequently do not believe the patient is a candidate for tPA unless further information becomes available clarifying the time of onset Noted above information . No major improvement in the left sided weakness since being in the hospital. Past History Past Medical History: diabetes, hypertension, hyperlipidemia (Schizophrenia), stroke, other Past Surgical History: No surgical history Social history: other (Marijuana abuse) Family history: hypertension Medications and Allergies Allergies Allergy/AdvReac Type Severity Reaction Status Date / Time No Known Allergies Allergy Unverified 11/13/21 00:57 Home Medications Medication Instructions Recorded Confirmed Last Taken Type Naproxen [Naprosyn] 500 mg PO BID #14 tablet 11/13/21 Unknown Rx Active Meds: Active Medications Acetaminophen (Acetaminophen 325 Mg Tab) 650 mg PO Q4H PRN PRN Reason: Pain MILD(1-3)/Fever >100.5/[facility]RA Aspirin (Aspirin 325 Mg Tab) 325 mg PO QDAY [facility] Last Admin: 02/14/22 10:01 Dose: 325 mg Atorvastatin Calcium (Atorvastatin 40 Mg Tab) 40 mg PO QHS [facility] Dextrose (Dextrose 50% In Water (25gm) 50 Ml Syringe) 0 ml IV Q30MIN PRN; Protocol PRN Reason: Hypoglycemia Famotidine (Famotidine 20 Mg/2 Ml Inj) 20 mg IV BID [facility] Last Admin: 02/14/22 10:01 Dose: 20 mg Sodium Chloride (Nacl 0.9% 1000 Ml) 1,000 mls @ 100 mls/hr IV DIRECT [facility] Last Admin: 02/14/22 14:59 Dose: 100 mls/hr Insulin Human Lispro (Insulin Lispro 100 Unit/Ml) 0 unit SUB-Q Q6HR [facility]; Protocol Last Admin: 02/14/22 06:38 Dose: Not Given Morphine Sulfate (Morphine 2 Mg/1 Ml Inj) 2 mg IV Q4H PRN PRN Reason: Pain, Moderate (4-6) Morphine Sulfate (Morphine 4 Mg/1 Ml Inj) 4 mg IV Q4H PRN PRN Reason: Pain , Severe (7-10) Ondansetron HCl (Ondansetron 4 Mg/2 Ml Inj) 4 mg IV Q8H PRN PRN Reason: Nausea And Vomiting Sodium Chloride (Sodium Chloride 0.9% 10 Ml Flush Syringe) 10 ml IV BID [facility] Last Admin: 02/14/22 10:08 Dose: 10 ml Sodium Chloride (Sodium Chloride 0.9% 10 Ml Flush Syringe) 10 ml IV PRN PRN PRN Reason: LINE FLUSH Physical Examination - Vital Signs Vital Signs: Vital Signs Pulse Resp BP Pulse Ox 75 16 141/87 99 02/14/22 00:33 02/14/22 00:33 02/14/22 00:33 02/14/22 00:33 - Physical Exam Narrative exam: The patient is alert , moves right upper and lower extremity, left side weakness , UE 3/5 , LE 3+/5. Gait is not tested . Results - Laboratory Findings CBC and BMP: 02/14/22 04:07 02/14/22 04:07 Abnormal Lab Findings: Abnormal Labs 02/13/22 02/13/22 02/13/22 20:48 20:48 20:48 Cavalier % (Auto) 10.1 H Cav[place]ier # (Auto) 0.9 H INR 0.84 L Sodium 136 L BUN 23 H Glucose 114 H 02/14/22 04:07 Cavalier % (Auto) 11.3 H [place]ier # (Auto) 0.9 H INR Sodium BUN Glucose Assessment and Plan 1. Ischemic CVA affecting the Right Side , ?Asymptomatic Left ICA stenosis . 2. Reviewed Consult Notes . 3. Reviewed MRI Brain and CTA Brain and Neck . 4. Continue on ASA 325 mg once a day . 5. Needs a consult with Vascular Surgery for discussion with patient about Left Carotid Stenosis ( also follow up ) . 6. Needs PT / OT 7. Call Back with Questions . Dr. Molina
[2022-02-15] MEDS: INSULIN LISPRO 100 UNIT/ML SUB-Q SCH ×5 (00:58→22:03)
[2022-02-15] MEDS: FAMOTIDINE 20 MG/2 ML INJ IV SCH ×2 (09:31→21:51)
[2022-02-15] MEDS: ASPIRIN 325 MG TAB PO SCH (09:31)
--- NOTE | 2022-02-15 20:16 | Progress Note ---
Assessment and Plan Assessment and plan: -CVA (cerebral vascular accident) Admit the patient to the medical telemetry. NPO. Normal saline at the rate of 100 cc/h. Aspirin 325 mg p.o. daily. Lipitor 40 mg p.o. daily. We do the MRI of the brain MRI of the brain and neck with and without contrast. PT OT speech evaluation neurology consult and vascular surgery consult PT OT evaluation, rehabilitation, discharge planning --Carotid artery stenosis; proximal basilar/right vertebral artery stenosis Antiplatelets and statins Vascular evaluation noted and appreciated Recommend medical management outpatient follow-up --Type II diabetes Accu-Chek every 6 hours with Humalog moderate dose coverage as. Diabetic education --Dyslipidemia Lipitor 40 mg p.o. daily. We will recheck the lipid panel --History of schizophrenia Stable. We will continue the home medication -- DVT prophylaxis Heparin 5000 units subcu every 12 hours for DVT prophylaxis. Pepcid 20 mg IV every 12 hours for GI prophylaxis. Patient is a full code Follow extensive neuro work-up Follow neurology and vascular evaluation recommendations Closely monitor the patient and adjust the management as needed Plan of care reviewed with the patient and his nurse. 02/16/2020 ;PT recommended acute rehab placement 02/16/2022; continue current management, follow with CM for discharge planning Awaiting subacute rehab/acute rehab placement Neuro work-up; CT head without contrast remote ganglia capsular infarction on the right with ex vacuo dilatation of the adjacent right lateral ventricle Bilateral cerebral infarctions which appear to be in the PICA distribution no acute intracranial abnormality noted CTA neck; soft plaque at the left carotid bulb associated with 70 to 75% stenosis at the origin of LICA CTA head; no indication of intracranial stenosis, large vessel occlusion or aneurysm MRI brain; small focus of acute/early subacute ischemia seen on the right anterolateral medulla No focal mass hemorrhage hydrocephalus or acute ischemia Slow or absent flow suggested in the right vertebral artery subacute right medial medullary ischemia MRA of the head; internal carotid arteries anterior cerebral arteries and middle cerebral arteries are normal Critical stenosis of proximal basilar artery Occluded right vertebral artery Critical stenosis of the proximal basilar History Interval history: I have seen and examined the patient at the bedside Patient's chart and medications reviewed Patient still has dysarthria and residual weakness PT recommended subacute rehab No new complaints Vital signs reviewed Hospitalist Physical - Constitutional Vitals: Temp Pulse Resp BP Pulse Ox 98.5 F 77 20 149/88 99 06/17/22 06:52 02/15/22 06:52 02/15/22 06:52 02/15/22 06:52 02/15/22 09:32 General appearance: Present: no acute distress, well-nourished, other (Slurred speech) - EENT Eyes: Present: PERRL, EOM intact - Neck Neck: Present: supple, normal ROM - Respiratory Respiratory effort: normal Respiratory: bilateral: diminished, negative: rales, rhonchi, wheezing - Cardiovascular Rhythm: regular Heart Sounds: Present: S1 & S2 - Extremities Extremities: no ischemia, No edema - Abdominal General gastrointestinal: soft, non-tender, non-distended, normal bowel sounds - Integumentary Integumentary: Present: clear, warm - Psychiatric Psychiatric: appropriate mood/affect, cooperative - Neurologic Neurologic: moves all extremities (Acute CVA with residual weakness and slurred speech) Results - Labs CBC & Chem 7: 02/14/22 04:07 02/14/22 04:07 Labs: Laboratory Last Values WBC 8.0 K/mm3 (4.5-11.0) 02/14/22 04:07 RBC 4.39 M/mm3 (3.65-5.03) 02/14/22 04:07 Hgb 13.7 gm/dl (11.8-15.2) 02/14/22 04:07 Hct 40.4 % (35.5-45.6) 02/14/22 04:07 MCV 92 fl (84-94) 02/14/22 04:07 MCH 31 pg (28-32) 02/14/22 04:07 MCHC 34 % (32-34) 02/14/22 04:07 RDW 13.5 % (13.2-15.2) 02/14/22 04:07 Plt Count 281 K/mm3 (140-440) 02/14/22 04:07 Lymph % (Auto) 26.2 % (13.4-35.0) 02/14/22 04:07 Craig % (Auto) 11.3 % (0.0-7.3) H 02/14/22 04:07 Eos % (Auto) 2.3 % (0.0-4.3) 02/14/22 04:07 Baso % (Auto) 0.5 % (0.0-1.8) 02/14/22 04:07 Lymph # (Auto) 2.1 K/mm3 (1.2-5.4) 02/14/22 04:07 Craig # (Auto) 0.9 K/mm3 (0.0-0.8) H 02/14/22 04:07 Eos # (Auto) 0.2 K/mm3 (0.0-0.4) 02/14/22 04:07 Baso # (Auto) 0.0 K/mm3 (0.0-0.1) 02/14/22 04:07 Seg Neutrophils % 59.7 % (40.0-70.0) 02/14/22 04:07 Seg Neutrophils # 4.8 K/mm3 (1.8-7.7) 02/14/22 04:07 PT 12.4 Sec. (12.2-14.9) 02/13/22 20:48 INR 0.84 (0.87-1.13) L 02/13/22 20:48 APTT 25.0 Sec. (24.2-36.6) 02/13/22 20:48 Thrombin Time 17.7 Sec. (15.1-19.6) 02/13/22 20:48 Sodium 138 mmol/L (137-145) 02/14/22 04:07 Potassium 3.8 mmol/L (3.6-5.0) 02/14/22 04:07 Chloride 102.9 mmol/L (98-107) 02/14/22 04:07 Carbon Dioxide 22 mmol/L (22-30) 02/14/22 04:07 Anion Gap 17 mmol/L 02/14/22 04:07 BUN 19 mg/dL (9-20) 02/14/22 04:07 Creatinine 0.9 mg/dL (0.8-1.3) 02/14/22 04:07 Estimated GFR > 60 ml/min 02/14/22 04:07 BUN/Creatinine Ratio 21 % 02/14/22 04:07 Glucose 87 mg/dL (75-100) 02/14/22 04:07 POC Glucose 158 mg/dL (70-105) H 02/15/22 16:10 Calcium 9.5 mg/dL (8.4-10.2) 02/14/22 04:07 Triglycerides 81 mg/dL (2-149) 02/14/22 04:07 Cholesterol 180 mg/dL (50-199) 02/14/22 04:07 LDL Cholesterol Direct 120 mg/dL (50-130) 02/14/22 04:07 HDL Cholesterol 48 mg/dL (40-59) 02/14/22 04:07 Cholesterol/HDL Ratio 3.75 % 02/14/22 04:07 Fraser/IV: Voiding Method Urinal Active Medications - Current Medications Current Medications: Generic Name Dose Route Start Last Admin Trade Name Freq PRN Reason Stop Dose Admin Acetaminophen 650 mg 02/13/22 23:10 Acetaminophen 325 Mg Tab PO Q4H PRN Pain MILD(1-3)/Fever >100.5/[facility] Aspirin 325 mg 02/14/22 10:00 02/15/22 09:31 Aspirin 325 Mg Tab PO 325 mg QDAY [facility] Administration Atorvastatin Calcium 40 mg 02/14/22 22:00 02/14/22 21:31 Atorvastatin 40 Mg Tab PO 40 mg QHS [facility] Administration Dextrose 0 ml 02/13/22 23:24 Dextrose 50% In Water (25gm) 50 Ml Syringe IV Q30MIN PRN Hypoglycemia Protocol Famotidine 20 mg 02/14/22 10:00 02/15/22 09:31 Famotidine 20 Mg/2 Ml Inj IV 20 mg BID [facility] Administration Insulin Human Lispro 0 unit 02/15/22 11:30 02/15/22 18:12 Insulin Lispro 100 Unit/Ml SUB-Q 2 unit ACHS [facility] Administration Protocol Morphine Sulfate 2 mg 02/13/22 23:10 Morphine 2 Mg/1 Ml Inj IV Q4H PRN Pain, Moderate (4-6) Morphine Sulfate 4 mg 02/13/22 23:10 Morphine 4 Mg/1 Ml Inj IV Q4H PRN Pain , Severe (7-10) Ondansetron HCl 4 mg 02/13/22 23:10 Ondansetron 4 Mg/2 Ml Inj IV Q8H PRN Nausea And Vomiting Sodium Chloride 10 ml 02/14/22 10:00 02/15/22 09:31 Sodium Chloride 0.9% 10 Ml Flush Syringe IV 10 ml BID [facility] Administration Sodium Chloride 10 ml 02/13/22 23:10 Sodium Chloride 0.9% 10 Ml Flush Syringe IV PRN PRN LINE FLUSH Nutrition/Malnutrition Assess - Dietary Evaluation Nutrition/Malnutrition Findings: Nutrition Notes Start: 02/14/22 16:56 Freq: Status: Active Protocol: Document 02/14/22 16:56 KARSON (Rec: 02/14/22 17:05 KARSON [id number]) Nutrition Notes Need for Assessment generated from: MD Order,Education Initial or Follow up Brief Note Current Diagnosis Diabetes,Hypertension,Stroke, Hyperlipidemia Other Pertinent Diagnosis Schizophrenia. Current Diet NPO (since 02/13 23:11). Height 6 ft Weight 81.647 kg [place] Body Weight (kg) 80.90 BMI 24.4 Intake Prior to Admission Good Weight change and time frame Pt denies having loss body weight [employer]. Weight Status Appropriate Subjective/Other Information RD consult for nutrition education assessment. Pt is currently on NPO. Pt is on Room Air, O2 saturation @ 96%, according to Physical Assessment History notes. Pt has missing teeth, according to Physical Assessment History notes. Pt needs total assistance with ADL activities, not a candidate for Nutrition Education. Percent of energy/protein needs met: Pt is currently on NPO. Nutrition Intervention Follow-Up By: 02/18/22 Additional Comments When pertinent, start monitoring food tolerance, %PO intake of meals, and BM.
[2022-02-16] MEDS: INSULIN LISPRO 100 UNIT/ML SUB-Q SCH ×4 (08:26→21:30)
[2022-02-16] MEDS: ASPIRIN 325 MG TAB PO SCH (09:12)
[2022-02-16] MEDS: amLODIPine 10 MG TAB PO SCH (09:12)
[2022-02-16] MEDS: FAMOTIDINE 20 MG/2 ML INJ IV SCH ×2 (09:12→21:31)
--- NOTE | 2022-02-16 16:15 | Progress Note ---
Assessment and Plan Assessment and plan: -CVA (cerebral vascular accident) Admit the patient to the medical telemetry. NPO. Normal saline at the rate of 100 cc/h. Aspirin 325 mg p.o. daily. Lipitor 40 mg p.o. daily. We do the MRI of the brain MRI of the brain and neck with and without contrast. PT OT speech evaluation neurology consult and vascular surgery consult PT OT evaluation, rehabilitation, discharge planning --Carotid artery stenosis; proximal basilar/right vertebral artery stenosis Antiplatelets and statins Vascular evaluation noted and appreciated Recommend medical management outpatient follow-up --Type II diabetes Accu-Chek every 6 hours with Humalog moderate dose coverage as. Diabetic education --Dyslipidemia Lipitor 40 mg p.o. daily. We will recheck the lipid panel --History of schizophrenia Stable. We will continue the home medication -- DVT prophylaxis Heparin 5000 units subcu every 12 hours for DVT prophylaxis. Pepcid 20 mg IV every 12 hours for GI prophylaxis. Patient is a full code Follow extensive neuro work-up Follow neurology and vascular evaluation recommendations Closely monitor the patient and adjust the management as needed Plan of care reviewed with the patient and his nurse. 02/16/2020 ;PT recommended acute rehab placement 02/16/2022; continue current management, follow with CM for discharge planning Awaiting subacute rehab/acute rehab placement Neuro work-up; CT head without contrast remote ganglia capsular infarction on the right with ex vacuo dilatation of the adjacent right lateral ventricle Bilateral cerebral infarctions which appear to be in the PICA distribution no acute intracranial abnormality noted CTA neck; soft plaque at the left carotid bulb associated with 70 to 75% stenosis at the origin of LICA CTA head; no indication of intracranial stenosis, large vessel occlusion or aneurysm MRI brain; small focus of acute/early subacute ischemia seen on the right anterolateral medulla No focal mass hemorrhage hydrocephalus or acute ischemia Slow or absent flow suggested in the right vertebral artery subacute right medial medullary ischemia MRA of the head; internal carotid arteries anterior cerebral arteries and middle cerebral arteries are normal Critical stenosis of proximal basilar artery Occluded right vertebral artery Critical stenosis of the proximal basilar History Interval history: I have seen and examined the patient at the bedside Patient's chart and medications reviewed Patient continues to have slurred speech slightly improved since yesterday Generalized weakness Vital signs noted Patient is awaiting once IV permit Hospitalist Physical - Constitutional Vitals: Temp Pulse Resp BP Pulse Ox 99.9 F H 113 H 20 153/93 96 02/16/22 07:56 02/16/22 07:56 02/16/22 04:43 02/16/22 07:56 02/16/22 07:56 General appearance: Present: no acute distress, well-nourished, other (Slurred speech) - EENT Eyes: Present: PERRL, EOM intact - Neck Neck: Present: supple, normal ROM - Respiratory Respiratory effort: normal Respiratory: bilateral: diminished, negative: rales, rhonchi, wheezing - Cardiovascular Rhythm: regular Heart Sounds: Present: S1 & S2 - Extremities Extremities: no ischemia, No edema - Abdominal General gastrointestinal: soft, non-tender, non-distended, normal bowel sounds - Integumentary Integumentary: Present: clear, warm - Psychiatric Psychiatric: appropriate mood/affect, cooperative - Neurologic Neurologic: moves all extremities (Acute CVA with residual weakness and slurred speech) Results - Labs CBC & Chem 7: 02/14/22 04:07 02/14/22 04:07 Labs: Laboratory Last Values WBC 8.0 K/mm3 (4.5-11.0) 02/14/22 04:07 RBC 4.39 M/mm3 (3.65-5.03) 02/14/22 04:07 Hgb 13.7 gm/dl (11.8-15.2) 02/14/22 04:07 Hct 40.4 % (35.5-45.6) 02/14/22 04:07 MCV 92 fl (84-94) 02/14/22 04:07 MCH 31 pg (28-32) 02/14/22 04:07 MCHC 34 % (32-34) 02/14/22 04:07 RDW 13.5 % (13.2-15.2) 02/14/22 04:07 Plt Count 281 K/mm3 (140-440) 02/14/22 04:07 Lymph % (Auto) 26.2 % (13.4-35.0) 02/14/22 04:07 Ashley % (Auto) 11.3 % (0.0-7.3) H 02/14/22 04:07 Eos % (Auto) 2.3 % (0.0-4.3) 02/14/22 04:07 Baso % (Auto) 0.5 % (0.0-1.8) 02/14/22 04:07 Lymph # (Auto) 2.1 K/mm3 (1.2-5.4) 02/14/22 04:07 Ashley # (Auto) 0.9 K/mm3 (0.0-0.8) H 02/14/22 04:07 Eos # (Auto) 0.2 K/mm3 (0.0-0.4) 02/14/22 04:07 Baso # (Auto) 0.0 K/mm3 (0.0-0.1) 02/14/22 04:07 Seg Neutrophils % 59.7 % (40.0-70.0) 02/14/22 04:07 Seg Neutrophils # 4.8 K/mm3 (1.8-7.7) 02/14/22 04:07 PT 12.4 Sec. (12.2-14.9) 02/13/22 20:48 INR 0.84 (0.87-1.13) L 02/13/22 20:48 APTT 25.0 Sec. (24.2-36.6) 02/13/22 20:48 Thrombin Time 17.7 Sec. (15.1-19.6) 02/13/22 20:48 Sodium 138 mmol/L (137-145) 02/14/22 04:07 Potassium 3.8 mmol/L (3.6-5.0) 02/14/22 04:07 Chloride 102.9 mmol/L (98-107) 02/14/22 04:07 Carbon Dioxide 22 mmol/L (22-30) 02/14/22 04:07 Anion Gap 17 mmol/L 02/14/22 04:07 BUN 19 mg/dL (9-20) 02/14/22 04:07 Creatinine 0.9 mg/dL (0.8-1.3) 02/14/22 04:07 Estimated GFR > 60 ml/min 02/14/22 04:07 BUN/Creatinine Ratio 21 % 02/14/22 04:07 Glucose 87 mg/dL (75-100) 02/14/22 04:07 POC Glucose 214 mg/dL (70-105) H 02/16/22 11:49 Calcium 9.5 mg/dL (8.4-10.2) 02/14/22 04:07 Triglycerides 81 mg/dL (2-149) 02/14/22 04:07 Cholesterol 180 mg/dL (50-199) 02/14/22 04:07 LDL Cholesterol Direct 120 mg/dL (50-130) 02/14/22 04:07 HDL Cholesterol 48 mg/dL (40-59) 02/14/22 04:07 Cholesterol/HDL Ratio 3.75 % 02/14/22 04:07 Fraser/IV: Voiding Method Urinal Active Medications - Current Medications Current Medications: Generic Name Dose Route Start Last Admin Trade Name Freq PRN Reason Stop Dose Admin Acetaminophen 650 mg 02/13/22 23:10 Acetaminophen 325 Mg Tab PO Q4H PRN Pain MILD(1-3)/Fever >100.5/[facility] Amlodipine Besylate 10 mg 02/16/22 10:00 02/16/22 09:12 Amlodipine 10 Mg Tab PO 10 mg DAILY [facility] Administration Aspirin 325 mg 02/14/22 10:00 02/16/22 09:12 Aspirin 325 Mg Tab PO 325 mg QDAY [facility] Administration Atorvastatin Calcium 40 mg 02/14/22 22:00 02/15/22 21:51 Atorvastatin 40 Mg Tab PO 40 mg QHS [facility] Administration Dextrose 0 ml 02/13/22 23:24 Dextrose 50% In Water (25gm) 50 Ml Syringe IV Q30MIN PRN Hypoglycemia Protocol Famotidine 20 mg 02/14/22 10:00 02/16/22 09:12 Famotidine 20 Mg/2 Ml Inj IV 20 mg BID [facility] Administration Insulin Human Lispro 0 unit 02/15/22 11:30 02/16/22 13:50 Insulin Lispro 100 Unit/Ml SUB-Q 3 unit ACHS [facility] Administration Protocol Morphine Sulfate 2 mg 02/13/22 23:10 Morphine 2 Mg/1 Ml Inj IV Q4H PRN Pain, Moderate (4-6) Morphine Sulfate 4 mg 02/13/22 23:10 Morphine 4 Mg/1 Ml Inj IV Q4H PRN Pain , Severe (7-10) Ondansetron HCl 4 mg 02/13/22 23:10 Ondansetron 4 Mg/2 Ml Inj IV Q8H PRN Nausea And Vomiting Sodium Chloride 10 ml 02/14/22 10:00 02/16/22 09:12 Sodium Chloride 0.9% 10 Ml Flush Syringe IV 10 ml BID [facility] Administration Sodium Chloride 10 ml 02/13/22 23:10 Sodium Chloride 0.9% 10 Ml Flush Syringe IV PRN PRN LINE FLUSH Nutrition/Malnutrition Assess - Dietary Evaluation Nutrition/Malnutrition Findings: Nutrition Notes Start: 02/14/22 16:56 Freq: Status: Active Protocol: Document 02/14/22 16:56 KARSON (Rec: 02/14/22 17:05 KARSON [id number]) Nutrition Notes Need for Assessment generated from: MD Order,Education Initial or Follow up Brief Note Current Diagnosis Diabetes,Hypertension,Stroke, Hyperlipidemia Other Pertinent Diagnosis Schizophrenia. Current Diet NPO (since 02/13 23:11). Height 6 ft Weight 81.647 kg [place] Body Weight (kg) 80.90 BMI 24.4 Intake Prior to Admission Good Weight change and time frame Pt denies having loss body weight [employer]. Weight Status Appropriate Subjective/Other Information RD consult for nutrition education assessment. Pt is currently on NPO. Pt is on Room Air, O2 saturation @ 96%, according to Physical Assessment History notes. Pt has missing teeth, according to Physical Assessment History notes. Pt needs total assistance with ADL activities, not a candidate for Nutrition Education. Percent of energy/protein needs met: Pt is currently on NPO. Nutrition Intervention Follow-Up By: 02/18/22 Additional Comments When pertinent, start monitoring food tolerance, %PO intake of meals, and BM.
[2022-02-16] MEDS: ACETAMINOPHEN 325 MG TAB PO PRN (21:31)
[2022-02-17] MEDS: ACETAMINOPHEN 325 MG TAB PO PRN (06:02)
[2022-02-17] MEDS: INSULIN LISPRO 100 UNIT/ML SUB-Q SCH ×4 (08:29→21:40)
--- NOTE | 2022-02-17 09:35 | Progress Note ---
Assessment and Plan Assessment and plan: -Acute CVA (cerebral vascular accident) Admit the patient to the medical telemetry. NPO. Normal saline at the rate of 100 cc/h. Aspirin 325 mg p.o. daily. Lipitor 40 mg p.o. daily. We do the MRI of the brain MRI of the brain and neck with and without contrast. PT OT speech evaluation neurology consult and vascular surgery consult PT OT evaluation, rehabilitation, discharge planning --Carotid artery stenosis; proximal basilar/right vertebral artery stenosis Antiplatelets and statins Vascular evaluation noted and appreciated Recommend medical management outpatient follow-up --Type II diabetes Accu-Chek every 6 hours with Humalog moderate dose coverage as. Diabetic education --Dyslipidemia Lipitor 40 mg p.o. daily. We will recheck the lipid panel --History of schizophrenia Stable. We will continue the home medication -- DVT prophylaxis Heparin 5000 units subcu every 12 hours for DVT prophylaxis. Pepcid 20 mg IV every 12 hours for GI prophylaxis. Patient is a full code --advance care planning; I have discussed with the patient his condition, discussed his diagnosis Discussed in detail the tests and reports, discussed in detail the treatment plan, I also discussed consultants recommendation I discussed physical therapy occupational therapy evaluation and recommendations, I also discussed discharge planning To subacute versus acute rehab versus home with home health I also encouraged him to take a book and reliably as he is on speech therapy. Answered all his questions. He verbalized understanding Additional 32 minutes Follow extensive neuro work-up Follow neurology and vascular evaluation recommendations Closely monitor the patient and adjust the management as needed Plan of care reviewed with the patient and his nurse. 02/16/2020 ;PT recommended acute rehab placement 02/16/2022; continue current management, follow with CM for discharge planning Awaiting subacute rehab/acute rehab placement 02/17/2022; patient is awaiting subacute rehab, Neuro work-up; CT head without contrast remote ganglia capsular infarction on the right with ex vacuo dilatation of the adjacent right lateral ventricle Bilateral cerebral infarctions which appear to be in the PICA distribution no acute intracranial abnormality noted CTA neck; soft plaque at the left carotid bulb associated with 70 to 75% stenosis at the origin of LICA CTA head; no indication of intracranial stenosis, large vessel occlusion or an eurysm MRI brain; small focus of acute/early subacute ischemia seen on the right anterolateral medulla No focal mass hemorrhage hydrocephalus or acute ischemia Slow or absent flow suggested in the right vertebral artery subacute right medial medullary ischemia MRA of the head; internal carotid arteries anterior cerebral arteries and middle cerebral arteries are normal Critical stenosis of proximal basilar artery Occluded right vertebral artery Critical stenosis of the proximal basilar Echo: LV function 50 to 55% no PFO on bubble study History Interval history: I have seen and examined the patient at the bedside Patient continues to have some slurred speech And generalized weakness Patient with acute CVA with residual weakness and dysarthria Patient responds to simple questions appropriately Vital signs reviewed Hospitalist Physical - Constitutional Vitals: Temp Pulse Resp BP Pulse Ox 98.7 F 106 H 20 145/93 98 02/17/22 05:59 02/17/22 01:17 02/17/22 05:59 02/17/22 05:59 02/17/22 02:00 General appearance: Present: no acute distress, well-nourished, other (Slurred speech) - EENT Eyes: Present: PERRL, EOM intact - Neck Neck: Present: supple, normal ROM - Respiratory Respiratory effort: normal Respiratory: bilateral: diminished, negative: rales, rhonchi, wheezing - Cardiovascular Rhythm: regular Heart Sounds: Present: S1 & S2 - Extremities Extremities: no ischemia, No edema - Abdominal General gastrointestinal: soft, non-tender, non-distended, normal bowel sounds - Integumentary Integumentary: Present: clear, warm - Psychiatric Psychiatric: appropriate mood/affect, cooperative - Neurologic Neurologic: other (Acute CVA with residual weakness and slurred speech) Results - Labs CBC & Chem 7: 02/14/22 04:07 02/14/22 04:07 Labs: Laboratory Last Values WBC 8.0 K/mm3 (4.5-11.0) 02/14/22 04:07 RBC 4.39 M/mm3 (3.65-5.03) 02/14/22 04:07 Hgb 13.7 gm/dl (11.8-15.2) 02/14/22 04:07 Hct 40.4 % (35.5-45.6) 02/14/22 04:07 MCV 92 fl (84-94) 02/14/22 04:07 MCH 31 pg (28-32) 02/14/22 04:07 MCHC 34 % (32-34) 02/14/22 04:07 RDW 13.5 % (13.2-15.2) 02/14/22 04:07 Plt Count 281 K/mm3 (140-440) 02/14/22 04:07 Lymph % (Auto) 26.2 % (13.4-35.0) 02/14/22 04:07 [place] % (Auto) 11.3 % (0.0-7.3) H 02/14/22 04:07 Eos % (Auto) 2.3 % (0.0-4.3) 02/14/22 04:07 Baso % (Auto) 0.5 % (0.0-1.8) 02/14/22 04:07 Lymph # (Auto) 2.1 K/mm3 (1.2-5.4) 02/14/22 04:07 [place] # (Auto) 0.9 K/mm3 (0.0-0.8) H 02/14/22 04:07 Eos # (Auto) 0.2 K/mm3 (0.0-0.4) 02/14/22 04:07 Baso # (Auto) 0.0 K/mm3 (0.0-0.1) 02/14/22 04:07 Seg Neutrophils % 59.7 % (40.0-70.0) 02/14/22 04:07 Seg Neutrophils # 4.8 K/mm3 (1.8-7.7) 02/14/22 04:07 PT 12.4 Sec. (12.2-14.9) 02/13/22 20:48 INR 0.84 (0.87-1.13) L 02/13/22 20:48 APTT 25.0 Sec. (24.2-36.6) 02/13/22 20:48 Thrombin Time 17.7 Sec. (15.1-19.6) 02/13/22 20:48 Sodium 138 mmol/L (137-145) 02/14/22 04:07 Potassium 3.8 mmol/L (3.6-5.0) 02/14/22 04:07 Chloride 102.9 mmol/L (98-107) 02/14/22 04:07 Carbon Dioxide 22 mmol/L (22-30) 02/14/22 04:07 Anion Gap 17 mmol/L 02/14/22 04:07 BUN 19 mg/dL (9-20) 02/14/22 04:07 Creatinine 0.9 mg/dL (0.8-1.3) 02/14/22 04:07 Estimated GFR > 60 ml/min 02/14/22 04:07 BUN/Creatinine Ratio 21 % 02/14/22 04:07 Glucose 87 mg/dL (75-100) 02/14/22 04:07 POC Glucose 108 mg/dL (70-105) H 02/17/22 07:16 Calcium 9.5 mg/dL (8.4-10.2) 02/14/22 04:07 Triglycerides 81 mg/dL (2-149) 02/14/22 04:07 Cholesterol 180 mg/dL (50-199) 02/14/22 04:07 LDL Cholesterol Direct 120 mg/dL (50-130) 02/14/22 04:07 HDL Cholesterol 48 mg/dL (40-59) 02/14/22 04:07 Cholesterol/HDL Ratio 3.75 % 02/14/22 04:07 Fraser/IV: Voiding Method Condom Catheter Active Medications - Current Medications Current Medications: Generic Name Dose Route Start Last Admin Trade Name Freq PRN Reason Stop Dose Admin Acetaminophen 650 mg 02/13/22 23:10 02/17/22 06:02 Acetaminophen 325 Mg Tab PO 650 mg Q4H PRN Administration Pain MILD(1-3)/Fever >100.5/BECERRA Amlodipine Besylate 10 mg 02/16/22 10:00 02/16/22 09:12 Amlodipine 10 Mg Tab PO 10 mg DAILY ROLDAN Administration Aspirin 325 mg 02/14/22 10:00 02/16/22 09:12 Aspirin 325 Mg Tab PO 325 mg QDAY ROLDAN Administration Atorvastatin Calcium 40 mg 02/14/22 22:00 02/16/22 21:31 Atorvastatin 40 Mg Tab PO 40 mg QHS ROLDAN Administration Dextrose 0 ml 02/13/22 23:24 Dextrose 50% In Water (25gm) 50 Ml Syringe IV Q30MIN PRN Hypoglycemia Protocol Famotidine 20 mg 02/14/22 10:00 02/16/22 21:31 Famotidine 20 Mg/2 Ml Inj IV 20 mg BID ROLDAN Administration Insulin Human Lispro 0 unit 02/15/22 11:30 02/17/22 08:29 Insulin Lispro 100 Unit/Ml SUB-Q Not Given ACHS ROLDAN Protocol Morphine Sulfate 2 mg 02/13/22 23:10 Morphine 2 Mg/1 Ml Inj IV Q4H PRN Pain, Moderate (4-6) Morphine Sulfate 4 mg 02/13/22 23:10 Morphine 4 Mg/1 Ml Inj IV Q4H PRN Pain , Severe (7-10) Ondansetron HCl 4 mg 02/13/22 23:10 Ondansetron 4 Mg/2 Ml Inj IV Q8H PRN Nausea And Vomiting Sodium Chloride 10 ml 02/14/22 10:00 02/16/22 22:00 Sodium Chloride 0.9% 10 Ml Flush Syringe IV 10 ml BID ROLDAN Administration Sodium Chloride 10 ml 02/13/22 23:10 Sodium Chloride 0.9% 10 Ml Flush Syringe IV PRN PRN LINE FLUSH Nutrition/Malnutrition Assess - Dietary Evaluation Nutrition/Malnutrition Findings: Nutrition Notes Start: 02/14/22 16:56 Freq: Status: Active Protocol: Document 02/14/22 16:56 KARSON (Rec: 02/14/22 17:05 KARSON [id number]) Nutrition Notes Need for Assessment generated from: MD Order,Education Initial or Follow up Brief Note Current Diagnosis Diabetes,Hypertension,Stroke, Hyperlipidemia Other Pertinent Diagnosis Schizophrenia. Current Diet NPO (since 02/13 23:11). 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 Pt is currently on NPO. Pt is on Room Air, O2 saturation @ 96%, according to Physical Assessment History notes. Pt has missing teeth, according to Physical Assessment History notes. Pt needs total assistance with ADL activities, not a candidate for Nutrition Education. Percent of energy/protein needs met: Pt is currently on NPO. Nutrition Intervention Follow-Up By: 02/18/22 Additional Comments When pertinent, start monitoring food tolerance, %PO intake of meals, and BM.
[2022-02-17] MEDS: amLODIPine 10 MG TAB PO SCH (09:57)
[2022-02-17] MEDS: ASPIRIN 325 MG TAB PO SCH (09:57)
[2022-02-17] MEDS: FAMOTIDINE 20 MG/2 ML INJ IV SCH (09:57)
--- NOTE | 2022-02-17 18:00 | Progress Note ---
Assessment and Plan Assessment and plan: -Acute CVA (cerebral vascular accident) Admit the patient to the medical telemetry. NPO. Normal saline at the rate of 100 cc/h. Aspirin 325 mg p.o. daily. Lipitor 40 mg p.o. daily. We do the MRI of the brain MRI of the brain and neck with and without contrast. PT OT speech evaluation neurology consult and vascular surgery consult PT OT evaluation, rehabilitation, discharge planning --Carotid artery stenosis; proximal basilar/right vertebral artery stenosis Antiplatelets and statins Vascular evaluation noted and appreciated Recommend medical management outpatient follow-up --Type II diabetes Accu-Chek every 6 hours with Humalog moderate dose coverage as. Diabetic education --Dyslipidemia Lipitor 40 mg p.o. daily. We will recheck the lipid panel --History of schizophrenia Stable. We will continue the home medication -- DVT prophylaxis Heparin 5000 units subcu every 12 hours for DVT prophylaxis. Pepcid 20 mg IV every 12 hours for GI prophylaxis. Patient is a full code --advance care planning; I have discussed with the patient his condition, discussed his diagnosis Discussed in detail the tests and reports, discussed in detail the treatment plan, I also discussed consultants recommendation I discussed physical therapy occupational therapy evaluation and recommendations, I also discussed discharge planning To subacute versus acute rehab versus home with home health I also encouraged him to take a book and reliably as he is on speech therapy. Answered all his questions. He verbalized understanding Additional 32 minutes Follow extensive neuro work-up Follow neurology and vascular evaluation recommendations Closely monitor the patient and adjust the management as needed Plan of care reviewed with the patient and his nurse. 02/16/2020 ;PT recommended acute rehab placement 02/16/2022; continue current management, follow with CM for discharge planning Awaiting subacute rehab/acute rehab placement 02/17/2022; patient is awaiting subacute rehab, Neuro work-up; CT head without contrast remote ganglia capsular infarction on the right with ex vacuo dilatation of the adjacent right lateral ventricle Bilateral cerebral infarctions which appear to be in the PICA distribution no acute intracranial abnormality noted CTA neck; soft plaque at the left carotid bulb associated with 70 to 75% stenosis at the origin of LICA CTA head; no indication of intracranial stenosis, large vessel occlusion or an eurysm MRI brain; small focus of acute/early subacute ischemia seen on the right anterolateral medulla No focal mass hemorrhage hydrocephalus or acute ischemia Slow or absent flow suggested in the right vertebral artery subacute right medial medullary ischemia MRA of the head; internal carotid arteries anterior cerebral arteries and middle cerebral arteries are normal Critical stenosis of proximal basilar artery Occluded right vertebral artery Critical stenosis of the proximal basilar Echo: LV function 50 to 55% no PFO on bubble study Hospitalist Physical - Constitutional Vitals: Temp Pulse Resp BP Pulse Ox 98.7 F 95 H 20 145/93 97 02/17/22 05:59 02/17/22 10:00 02/17/22 05:59 02/17/22 05:59 02/17/22 14:00 General appearance: Present: no acute distress, well-nourished, other (Slurred speech) Results - Labs CBC & Chem 7: 02/14/22 04:07 02/14/22 04:07 Labs: Laboratory Last Values WBC 8.0 K/mm3 (4.5-11.0) 02/14/22 04:07 RBC 4.39 M/mm3 (3.65-5.03) 02/14/22 04:07 Hgb 13.7 gm/dl (11.8-15.2) 02/14/22 04:07 Hct 40.4 % (35.5-45.6) 02/14/22 04:07 MCV 92 fl (84-94) 02/14/22 04:07 MCH 31 pg (28-32) 02/14/22 04:07 MCHC 34 % (32-34) 02/14/22 04:07 RDW 13.5 % (13.2-15.2) 02/14/22 04:07 Plt Count 281 K/mm3 (140-440) 02/14/22 04:07 Lymph % (Auto) 26.2 % (13.4-35.0) 02/14/22 04:07 [place] % (Auto) 11.3 % (0.0-7.3) H 02/14/22 04:07 Eos % (Auto) 2.3 % (0.0-4.3) 02/14/22 04:07 Baso % (Auto) 0.5 % (0.0-1.8) 02/14/22 04:07 Lymph # (Auto) 2.1 K/mm3 (1.2-5.4) 02/14/22 04:07 [place] # (Auto) 0.9 K/mm3 (0.0-0.8) H 02/14/22 04:07 Eos # (Auto) 0.2 K/mm3 (0.0-0.4) 02/14/22 04:07 Baso # (Auto) 0.0 K/mm3 (0.0-0.1) 02/14/22 04:07 Seg Neutrophils % 59.7 % (40.0-70.0) 02/14/22 04:07 Seg Neutrophils # 4.8 K/mm3 (1.8-7.7) 02/14/22 04:07 PT 12.4 Sec. (12.2-14.9) 02/13/22 20:48 INR 0.84 (0.87-1.13) L 02/13/22 20:48 APTT 25.0 Sec. (24.2-36.6) 02/13/22 20:48 Thrombin Time 17.7 Sec. (15.1-19.6) 02/13/22 20:48 Sodium 138 mmol/L (137-145) 02/14/22 04:07 Potassium 3.8 mmol/L (3.6-5.0) 02/14/22 04:07 Chloride 102.9 mmol/L (98-107) 02/14/22 04:07 Carbon Dioxide 22 mmol/L (22-30) 02/14/22 04:07 Anion Gap 17 mmol/L 02/14/22 04:07 BUN 19 mg/dL (9-20) 02/14/22 04:07 Creatinine 0.9 mg/dL (0.8-1.3) 02/14/22 04:07 Estimated GFR > 60 ml/min 02/14/22 04:07 BUN/Creatinine Ratio 21 % 02/14/22 04:07 Glucose 87 mg/dL (75-100) 02/14/22 04:07 POC Glucose 186 mg/dL (70-105) H 02/17/22 16:51 Calcium 9.5 mg/dL (8.4-10.2) 02/14/22 04:07 Triglycerides 81 mg/dL (2-149) 02/14/22 04:07 Cholesterol 180 mg/dL (50-199) 02/14/22 04:07 LDL Cholesterol Direct 120 mg/dL (50-130) 02/14/22 04:07 HDL Cholesterol 48 mg/dL (40-59) 02/14/22 04:07 Cholesterol/HDL Ratio 3.75 % 02/14/22 04:07 Fraser/IV: Voiding Method Condom Catheter Active Medications - Current Medications Current Medications: Generic Name Dose Route Start Last Admin Trade Name Freq PRN Reason Stop Dose Admin Acetaminophen 650 mg 02/13/22 23:10 02/17/22 06:02 Acetaminophen 325 Mg Tab PO 650 mg Q4H PRN Administration Pain MILD(1-3)/Fever >100.5/BECERRA Amlodipine Besylate 10 mg 02/16/22 10:00 02/17/22 09:57 Amlodipine 10 Mg Tab PO 10 mg DAILY ROLDAN Administration Aspirin 325 mg 02/14/22 10:00 02/17/22 09:57 Aspirin 325 Mg Tab PO 325 mg QDAY ORLDAN Administration Atorvastatin Calcium 40 mg 02/14/22 22:00 02/16/22 21:31 Atorvastatin 40 Mg Tab PO 40 mg QHS ROLDAN Administration Dextrose 0 ml 02/13/22 23:24 Dextrose 50% In Water (25gm) 50 Ml Syringe IV Q30MIN PRN Hypoglycemia Protocol Famotidine 20 mg 02/17/22 22:00 Famotidine 20 Mg Tab PO BID ROLDAN Insulin Human Lispro 0 unit 02/15/22 11:30 02/17/22 17:55 Insulin Lispro 100 Unit/Ml SUB-Q 1 unit ACHS ROLDAN Administration Protocol Morphine Sulfate 2 mg 02/13/22 23:10 Morphine 2 Mg/1 Ml Inj IV Q4H PRN Pain, Moderate (4-6) Morphine Sulfate 4 mg 02/13/22 23:10 Morphine 4 Mg/1 Ml Inj IV Q4H PRN Pain , Severe (7-10) Ondansetron HCl 4 mg 02/13/22 23:10 Ondansetron 4 Mg/2 Ml Inj IV Q8H PRN Nausea And Vomiting Sodium Chloride 10 ml 02/14/22 10:00 02/17/22 09:57 Sodium Chloride 0.9% 10 Ml Flush Syringe IV 10 ml BID ROLDAN Administration Sodium Chloride 10 ml 02/13/22 23:10 Sodium Chloride 0.9% 10 Ml Flush Syringe IV PRN PRN LINE FLUSH Nutrition/Malnutrition Assess - Dietary Evaluation Nutrition/Malnutrition Findings: Nutrition Notes Start: 02/14/22 16:56 Freq: Status: Active Protocol: Document 02/14/22 16:56 KARSON (Rec: 02/14/22 17:05 KARSON [id number]) Nutrition Notes Need for Assessment generated from: MD Order,Education Initial or Follow up Brief Note Current Diagnosis Diabetes,Hypertension,Stroke, Hyperlipidemia Other Pertinent Diagnosis Schizophrenia. Current Diet NPO (since 02/13 23:11). 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 Pt is currently on NPO. Pt is on Room Air, O2 saturation @ 96%, according to Physical Assessment History notes. Pt has missing teeth, according to Physical Assessment History notes. Pt needs total assistance with ADL activities, not a candidate for Nutrition Education. Percent of energy/protein needs met: Pt is currently on NPO. Nutrition Intervention Follow-Up By: 02/18/22 Additional Comments When pertinent, start monitoring food tolerance, %PO intake of meals, and BM.
[2022-02-17] MEDS: FAMOTIDINE 20 MG TAB PO SCH (21:33)
[2022-02-18 05:04] VITALS: BP 127/75
[2022-02-18] MEDS: amLODIPine 10 MG TAB PO SCH (10:13)
[2022-02-18] MEDS: FAMOTIDINE 20 MG TAB PO SCH (10:13)
[2022-02-18] MEDS: INSULIN LISPRO 100 UNIT/ML SUB-Q SCH (10:14)
[2022-02-18] MEDS: ASPIRIN 325 MG TAB PO SCH (10:14)
--- NOTE | 2022-02-18 12:25 | Discharge Summary ---
Providers - Providers Date of Admission: 02/13/22 21:00 Date of discharge: 02/18/22 Attending physician: GWEN CAR 02/13/22 Consult to Physician [CONS] Routine Comment: Consulting Provider: BRIAN PRECIADO Physician Instructions: Reason For Exam: cva 02/13/22 23:10 Consult to Physician [CONS] Routine Comment: Consulting Provider: OSMIN NEWSOME Physician Instructions: Reason For Exam: carotid stenosis Occupational Therapy Evaluate and Treat [CONS] Routine Comment: Reason For Exam: Neuro deficits Physical Therapy Evaluation and Treat [CONS] Routine Comment: Reason For Exam: Neuro deficits 02/13/22 23:24 Consult to Dietitian/Nutrition [CONS] Routine Physician Instructions: Reason For Exam: Reason for Consult: Diet education Primary care physician: DIDACTIC INSTRUCTOR Hospitalization Condition: Fair Hospital course: -Acute CVA (cerebral vascular accident) left hemiparesis Admit the patient to the medical telemetry. NPO. Normal saline at the rate of 100 cc/h. Aspirin 325 mg p.o. daily. Lipitor 40 mg p.o. daily. We do the MRI of the brain MRI of the brain and neck with and without contrast. PT OT speech evaluation neurology consult and vascular surgery consult PT OT evaluation, rehabilitation, discharge planning --Carotid artery stenosis; proximal basilar/right vertebral artery stenosis Antiplatelets and statins Vascular evaluation noted and appreciated Recommend medical management outpatient follow-up --Type II diabetes Accu-Chek every 6 hours with Humalog moderate dose coverage as. Diabetic education --Dyslipidemia Lipitor 40 mg p.o. daily. We will recheck the lipid panel --History of schizophrenia Stable. We will continue the home medication -- DVT prophylaxis Heparin 5000 units subcu every 12 hours for DVT prophylaxis. Pepcid 20 mg IV every 12 hours for GI prophylaxis. Patient is a full code --advance care planning; I have discussed with the patient his condition, discussed his diagnosis Discussed in detail the tests and reports, discussed in detail the treatment plan, I also discussed consultants recommendation I discussed physical therapy occupational therapy evaluation and recommendations, I also discussed discharge planning To subacute versus acute rehab versus home with home health I also encouraged him to take a book and reliably as he is on speech therapy. Answered all his questions. He verbalized understanding Additional 32 minutes Disposition: 01 HOME / SELF CARE / HOMELESS Final Discharge Diagnosis (Prints w/discharge instructions): Acute CVA left hemiparesis. Carotid artery stenosis. Type 2 diabetes mellitus. Dyslipidemia. History of schizophrenia Time spent for discharge: 40 minutes Core Measure Documentation - Palliative Care Palliative Care/ Comfort Measures: Not Applicable - Core Measures Any of the following diagnoses?: stroke - Stroke Discharge Requirements Statin for LDL = or >70 mg/dl on DC: Yes Anticoag for atrial fib/atrial flutter: Not Applicable (No A. fib or flutter) Antithrombotic for ischemic stroke: Yes Exam - Constitutional Vitals: Temp Pulse Resp BP Pulse Ox 98.4 F 94 H 20 127/75 96 02/18/22 05:01 02/18/22 10:00 02/18/22 05:01 02/18/22 05:01 02/18/22 05:01 Plan Activity: advance as tolerated, fall precautions Diet: diabetic, other (Cardiac diet) Additional Instructions: Fall precautions. Advised to follow primary care physician in 1 week. Advised to follow private neurologist in 1 to 2 weeks. If you have worsening symptoms contact MD or go to the nearest emergency room as n eeded. Strongly advised to comply with medications, diet, follow-up with doctors visits Follow up with: PRIMARY CARE,MD [Primary Care Provider] - 3-5 Days Prescriptions: Aspirin 325 mg PO QDAY #30 tablet metFORMIN [Glucophage] 500 mg PO BID #60 AtorvaSTATin [Lipitor] 40 mg PO QHS #30 tablet Famotidine [Pepcid] 20 mg PO BID #20 tablet
== END 2022-02-18 13:05 | disposition home or self-care (01) | DRG 65 ==
LOC: ED 20:03 → 4A 21:00
PROVIDERS: ADMIT Hospitalist; ATTEND Internal Medicine
DX: I63.9 Cerebral infarction, unspecified (principal); G81.94 Hemiplegia, unspecified affecting left nondominant side; I65.29 Occlusion and stenosis of unspecified carotid artery; F20.9 Schizophrenia, unspecified; I10 Essential (primary) hypertension; E78.5 Hyperlipidemia, unspecified; E11.9 Type 2 diabetes mellitus without complications; Z82.49 Family history of ischemic heart disease and other diseases of the circulatory system; E78.00 Pure hypercholesterolemia, unspecified
CPT/HCPCS: 36415; 70450; 70496; 70498; 70544; 70551; 80048; 80061; 82962; 85025; 85610; 85670; 85730; 93005; 93306; G0378; J3490; Q9967; C8929; J1815; J7030

== ENCOUNTER 2022-02-20 02:44 | Emergency (ER) | payer MEDICAID ==
[2022-02-20 03:40] VITALS: BP 137/83
--- NOTE | 2022-02-20 10:55 | Emergency Department Report ---
HPI - General Chief Complaint: Medical Clearance Time Seen by Provider: 02/20/22 10:35 - HPI HPI: This is a 56-year-old -[place] male who presents to the emergency department, brought in by the police after he had some type of verbal altercation with his significant other. Per the initial triage note, apparently he was kicked out of the apartment. The patient was admitted here from 02/13 until 02/18 after he had a stroke causing some left-sided weakness. The patient has no complaints at this time including any headache, increased weakness, chest pain, shortness of breath, fever. He also has a past medical history of hypertension, diabetes and schizophrenia. 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) Hx Diabetes: Yes Hx Psychiatric Treatment: Yes (schizophrenia) Additional medical history: high cholesterol - Social History Smoking Status: Never Smoker - Medications Home Medications: Home Medications Medication Instructions Recorded Confirmed Last Taken Type Dapagliflozin Propanediol [Farxiga] 10 mg PO QDAY 02/15/22 02/15/22 Unknown History Hydralazine HCl 50 mg PO QDAY 02/15/22 02/15/22 Unknown History Insulin Lispro [Humalog 100 8 units SQ TIDWM 02/15/22 02/15/22 Unknown History UNITS/ML Kwikpen] Lisinopril [Zestril TAB] 30 mg PO QDAY 02/15/22 02/15/22 Unknown History Sitagliptin Phosphate [Januvia] 100 mg PO QDAY 02/15/22 02/15/22 Unknown History Triamcinolone 0.5% [Kenalog 0.5% 1 applic TP BID 02/15/22 02/15/22 Unknown History CREAM] Valsartan [Diovan] 160 mg PO QDAY 02/15/22 02/15/22 Unknown History amLODIPine 10 mg PO DAILY 02/15/22 02/15/22 Unknown History Aspirin 325 mg PO QDAY #30 tablet 02/18/22 Unknown Rx AtorvaSTATin [Lipitor] 40 mg PO QHS #30 tablet 02/18/22 Unknown Rx Famotidine [Pepcid] 20 mg PO BID #20 tablet 02/18/22 Unknown Rx metFORMIN [Glucophage] 500 mg PO BID #60 02/18/22 Unknown Rx ED Review of Systems ROS: Stated complaint: CASE MANAGEMENT Other details as noted in HPI Comment: All other systems reviewed and negative Constitutional: denies: chills, fever Eyes: denies: eye pain, vision change ENT: denies: ear pain, throat pain Respiratory: denies: cough, shortness of breath Cardiovascular: denies: chest pain, palpitations Gastrointestinal: denies: abdominal pain, vomiting Genitourinary: denies: dysuria, discharge Musculoskeletal: denies: back pain, arthralgia Skin: denies: rash, lesions Neurological: denies: headache, weakness Physical Exam - Physical Exam Vital Signs: Vital Signs 02/20/22 03:35 Temperature 98.5 F Pulse Rate 103 H Respiratory 18 Rate Blood Pressure 137/83 O2 Sat by Pulse 99 Oximetry Physical Exam: GENERAL: The patient is well-developed well-nourished. HENT: Normocephalic. Atraumatic. Patient has moist mucous membranes. EYES: Extraocular motions are intact. NECK: Supple. Trachea is midline. CHEST/LUNGS: Clear to auscultation. There is no respiratory distress noted. HEART/CARDIOVASCULAR: Regular. There is no tachycardia. There is no murmur. ABDOMEN: Abdomen is soft, nontender. Patient has normal bowel sounds. There is no abdominal distention. SKIN: Skin is warm and dry. NEURO: The patient is awake, alert, and oriented. The patient is cooperative. Left upper and lower extremity weakness. MUSCULOSKELETAL: There is no tenderness or deformity. ED Course Vital Signs 02/20/22 03:35 Temperature 98.5 F Pulse Rate 103 H Respiratory 18 Rate Blood Pressure 137/83 O2 Sat by Pulse 99 Oximetry ED Medical Decision Making - Medical Decision Making This patient recently was admitted here for a stroke that left him with some left-sided deficits. He was brought into the emergency department last night, 1 day after discharge, by police after he was allegedly kicked out of a significant other's apartment and he admits that they had "a fight." At the time of my examination the patient has no physical or psychiatric complaints. The patient is refusing any blood work and asking for discharge home. Vital signs reassuring including being afebrile. He was seen by case management to facilitate transportation. Critical Care Time: No Critical care attestation.: If time is entered above; I have spent that time in minutes in the direct care of this critically ill patient, excluding procedure time. ED Disposition Clinical Impression: History of CVA (cerebrovascular accident) Disposition: HOME / SELF CARE / HOMELESS Is pt being admited?: No Condition: Stable Additional Instructions: As with your previous discharge, please follow-up with Dr. Newsome regarding your history of carotid stenosis, and Dr. Preciado regarding your history of stroke. Please follow-up with a primary care physician in the next few days. Return to the emergency department with any worsening of your symptoms or with any acute distress. Referrals: OSMIN NEWSOME MD [Staff Physician] - 3-5 Days BRIAN PRECIADO MD [Staff Physician] - 3-5 Days Time of Disposition: 11:32
== END 2022-02-20 12:16 | disposition home or self-care (01) ==
LOC: ED 02:44
DX: Z86.73 Personal history of transient ischemic attack (TIA), and cerebral infarction without residual deficits (principal); I10 Essential (primary) hypertension; E11.9 Type 2 diabetes mellitus without complications; E78.00 Pure hypercholesterolemia, unspecified; F20.9 Schizophrenia, unspecified
CPT/HCPCS: 99282